=== PATIENT | male | born 1990 | race Asian ===

== ENCOUNTER 2017-04-06 06:19 | Day surgery (SDC) | payer OTHER ==
[2017-04-06] MEDS ORDERED: LIDOCAINE 1% 300 MG/30 ML SDV ONE (06:53)
[2017-04-06] MEDS ORDERED: ALBUTEROL 3 ML DEYVIAL ONE (06:53)
[2017-04-06] MEDS ORDERED: LIDOCAINE HCL 4% TOPICAL SOLN 50ML ONE (06:54)
[2017-04-06] MEDS ORDERED: LIDOCAINE 2% JELLY 5 ML TUBE ONE (06:54)
[2017-04-06] MEDS ORDERED: MIDAZOLAM 2 MG/2 ML VIAL ONE (07:16)
[2017-04-06] MEDS ORDERED: fentaNYL 100 MCG/2 ML INJ ONE (07:16)
--- NOTE | 2017-04-11 12:28 | GPN ---
[f rep st] PROCEDURE NOTE Corrected report DATE OF PROCEDURE: 04/06/2017 PROCEDURE: Bronchoscopy with endobronchial biopsies. Informed consent was obtained from the patient prior to the administration of anesthesia. The risks and benefits of both conscious sedation and the procedure itself were explained in detail and he agreed to proceed. Conscious sedation was achieved using total of 3 mg of IV Versed and 100 mcg of IV fentanyl. The patient tolerated these well without complications. DESCRIPTION OF PROCEDURE: A boat cleaning supervisor-out was performed prior to the administration of anesthesia. Subsequently, topical lidocaine was applied to the oropharynx prior to the insertion of the bronchoscope through the mouth. The uvula appeared to be normal, as well as the vocal cords and trachea. The main opal was sharp. There were mild secretions seen in the left mainstem. In the left mainstem at the orifice of the left lower division was an irregularly-shaped, somewhat sessile and polypoid mass that was obstructing the lower lobe bronchi. The biopsy forceps were able to pass around the mass, but the bronchoscope was not. Multiple forceps biopsies were taken from this mass without significant bleeding and without obvious complication. Subsequently, bronchial washings were also taken from this region. Next, attention was drawn toward the main opal, where a 3.7 cm subcarinal lymph node had been noted on CT scan. Although ultrasound guidance was not employed due to lack of equipment , multiple fine-needle aspirates were taken from this region without difficulty. A postprocedure fluoroscopy did not reveal pneumothorax and the patient tolerated the procedure well. There were no obvious complications. /[id number]/MODL Ricky acc#, 04/14/17, donna QUIROZ
== END 2017-04-06 10:05 | disposition home or self-care (01) ==
LOC: FSGY 06:19
PROVIDERS: ATTEND Internal Medicine Critical Care Medicine
PROC: 0B9B8ZX Drainage of Left Lower Lobe Bronchus, Via Natural or Artificial Opening Endoscopic, Diagnostic (ICD-10-PCS; principal; 2017-04-06 07:30)
PROC: 0BBB8ZX Excision of Left Lower Lobe Bronchus, Via Natural or Artificial Opening Endoscopic, Diagnostic (ICD-10-PCS; principal; 2017-04-06 07:30)
DX: C34.02 Malignant neoplasm of left main bronchus (principal)
CPT/HCPCS: J0171; J2250; J3010

== ENCOUNTER 2017-04-08 06:48 | Observation (INO) | payer OTHER ==
--- NOTE | 2017-04-08 07:11 | EDPHY ---
H & P Time Seen by Provider: 04/08/17 07:06 HPI/ROS: Chief complaint. Flank pain HPI. 26-year-old male presents emergency department with left flank pain and shortness of breath. Patient has had abdominal cramping for about 1 week. He was seen in our emergency department on April 04 where it was discovered that he had a mass in his left chest. He had a bronchoscopy 2 days ago and specimens were taken but path results are pending. He now has left flank pain for 3 hours worse with breathing and movement. Slight shortness of breath. No fever or cough. No vomiting or diarrhea though he says he somewhat gassy. No urinary symptoms. Currently taking antibiotics for possible left lower lobe pneumonia. ROS Constitutional. no fever/chills, no weakness Eyes. no problems with vision ENT. no sore throat, no nasal drainage Cardiovascular. no chest pain Respiratory. Shortness of breath without cough Abdominal. Left flank pain without vomiting or diarrhea . no problems urinating MS. no calf pain/swelling, no neck/back pain, no joint pain Skin. no rash Lymph. no swollen glands Neuro. no headache, no dizziness, no difficulty walking or with speech Past Medical/Surgical History: Healthy until a few days ago when he is found to have a mass in his left chest Social History: Single, nonsmoker, no alcohol Smoking Status: Never smoked Physical Exam: General Appearance: Alert well-developed male moderate distress vital signs are stable Eyes: Pupils equal and round no pallor or injection. ENT, Mouth: Mucous membranes are moist. Respiratory: There are no retractions, lungs are clear to auscultation. Cardiovascular: Regular rate and rhythm. Gastrointestinal: Abdomen is soft and nontender, no masses, bowel sounds normal. Tenderness to palpation left flank and posterior back area Neurological: Awake and alert, sensory and motor exams grossly normal. Skin: Warm and dry, no rashes. Musculoskeletal: Neck is supple nontender. Extremities symmetrical, full range of motion. Psychiatric: Patient is oriented X 3, there is no agitation. Constitutional: Initial Vital Signs Temperature (C) 36.9 C 04/08/17 06:51 Heart Rate 89 04/08/17 06:51 Respiratory Rate 18 04/08/17 06:51 Blood Pressure 127/60 H 04/08/17 06:51 O2 Sat (%) 96 04/08/17 06:51 O2 Delivery Mode Room Air Allergies/Adverse Reactions: ANTIBIOTIC Allergy (Uncoded 04/04/17 19:05) CONTRAST DYE Allergy (Uncoded 04/08/17 06:54) Home Medications: Medication Instructions Recorded AZITHROMYCIN [Z-PACK] 250 mg PO DAILY #6 tab 04/04/17 Albuterol [Proventil Inhaler HFA 1 - 2 puffs IH Q4H #1 mdi 04/04/17 (*)] Hydrocodone/APAP 5/325 [[place] 1 - 2 tab PO Q4H PRN #10 tab 04/04/17 5/325] Ibuprofen [Motrin (*)] 800 mg PO Q6-8PRN #14 tab 04/04/17 Herbals/Supplements -Info Only 1 ea PO DAILY 04/08/17 Medical Decision Making - Diagnostics Imaging Results: Imaging Impressions Chest X-Ray 04/08/17 07:46 Impression: 1. No post bronchoscopy pneumothorax. 2. Increased left lower lobe consolidation. Chest x-ray interpreted by me shows no pneumothorax. I think that the apparent pneumonia in the left lower lobe is worse than chest x-ray on April 04 Procedures: IV normal saline with 1 L saline given. Morphine for pain. Zofran for nausea prevention Sepsis evaluation ED Course/Re-evaluation: Recheck 8:55 am--stable. Better after pain medication no continuing to have discomfort. Patient, mom, and I discussed imaging study results. I consulted and discussed case with Dr. Perez, hospitalist who agrees to the admission I consulted and discussed the case with Dr. Amin, pulmonology, who will see The patient in the emergency department Patient and his mother and I discussed imaging study results, treatment plan, criteria for return importance of follow-up and further evaluation. We recommended admission. They expressed understanding and agreed Differential Diagnosis: Patient has been undergoing workup for pneumonia versus mass with recent bronchoscopy. His infiltrate in the left lower lung is worse. He has poorly controlled pain. It is unclear to me whether this is mass or consolidation of pneumonia. Plan is admission and continuing antibiotics as well as Pulmonary consult - Data Points Laboratory Results: Laboratory Results 04/08/17 08:33 04/08/17 08:33 04/08/17 04/08/17 04/08/17 09:08 08:33 08:33 WBC RBC Hgb Hct MCV MCH MCHC RDW Plt Count MPV Neut % (Auto) Lymph % (Auto) Cross % (Auto) Eos % (Auto) Baso % (Auto) Nucleat RBC Rel Count Absolute Neuts (auto) Absolute Lymphs (auto) Absolute Monos (auto) Absolute Eos (auto) Absolute Basos (auto) Absolute Nucleated RBC Immature Gran % Immature Gran # PT 14.0 SEC SEC (12.0-15.0) INR 1.09 (0.83-1.16) APTT 29.2 SEC SEC (23.0-38.0) VBG Lactic Acid 1.3 mmol/L mmol/L (0.7-2.1) Sodium Potassium Chloride Carbon Dioxide Anion Gap BUN Creatinine Estimated GFR Glucose Calcium Total Bilirubin 0.6 mg/dL mg/dL (0.1-1.4) Lipase Urine Color Urine Appearance Urine pH Ur Specific [place] Urine Protein Urine Ketones Urine Blood Urine Nitrate Urine Bilirubin Urine Urobilinogen Ur Leukocyte Esterase Urine Glucose 04/08/17 04/08/17 04/08/17 08:33 08:33 08:00 WBC 8.62 10^3/uL 10^3/uL (3.80-9.50) RBC 5.07 10^6/uL 10^6/uL (4.40-6.38) Hgb 15.4 g/dL g/dL (13.7-17.5) Hct 46.1 % % (40.0-51.0) MCV 90.9 fL fL (81.5-99.8) MCH 30.4 pg pg (27.9-34.1) MCHC 33.4 g/dL g/dL (32.4-36.7) RDW 11.8 % % (11.5-15.2) Plt Count 265 10^3/uL 10^3/uL (150-400) MPV 9.2 fL fL (8.7-11.7) Neut % (Auto) 67.9 % % (39.3-74.2) Lymph % (Auto) 20.3 % % (15.0-45.0) Cross % (Auto) 8.8 % % (4.5-13.0) Eos % (Auto) 2.3 % % (0.6-7.6) Baso % (Auto) 0.2 % L % (0.3-1.7) Nucleat RBC Rel Count 0.0 % % (0.0-0.2) Absolute Neuts (auto) 5.85 10^3/uL 10^3/uL (1.70-6.50) Absolute Lymphs (auto) 1.75 10^3/uL 10^3/uL (1.00-3.00) Absolute Monos (auto) 0.76 10^3/uL 10^3/uL (0.30-0.80) Absolute Eos (auto) 0.20 10^3/uL 10^3/uL (0.03-0.40) Absolute Basos (auto) 0.02 10^3/uL 10^3/uL (0.02-0.10) Absolute Nucleated RBC 0.00 10^3/uL 10^3/uL (0-0.01) Immature Gran % 0.5 % % (0.0-1.1) Immature Gran # 0.04 10^3/uL 10^3/uL (0.00-0.10) PT INR APTT VBG Lactic Acid Sodium 145 mEq/L H mEq/L (134-144) Potassium 4.9 mEq/L mEq/L (3.5-5.2) Chloride 106 mEq/L mEq/L (97-110) Carbon Dioxide 27 mEq/l mEq/l (22-31) Anion Gap 12 mEq/L mEq/L (8-16) BUN 14 mg/dL mg/dL (7-23) Creatinine 0.9 mg/dL mg/dL (0.7-1.3) Estimated GFR > 60 Glucose 85 mg/dL mg/dL (70-100) Calcium 9.4 mg/dL mg/dL (8.5-10.4) Total Bilirubin Lipase 35.0 IU/L IU/L (23-300) Urine Color YELLOW Urine Appearance CLEAR Urine pH 5.0 (5.0-7.5) Ur Specific [place] 1.029 (1.002-1.030) Urine Protein NEGATIVE (NEGATIVE) Urine Ketones NEGATIVE (NEGATIVE) Urine Blood NEGATIVE (NEGATIVE) Urine Nitrate NEGATIVE (NEGATIVE) Urine Bilirubin NEGATIVE (NEGATIVE) Urine Urobilinogen NEGATIVE EU EU (0.2-1.0) Ur Leukocyte Esterase NEGATIVE (NEGATIVE) Urine Glucose NEGATIVE (NEGATIVE) Medications Given: Discontinued Medications Azithromycin (Zithromax) 250 mg PO EDNOW ONE PRN Reason: Protocol Stop: 04/08/17 09:34 Last Admin: 04/08/17 09:57 Dose: 250 mg Hydromorphone HCl (Dilaudid) 0.5 mg IVP EDNOW ONE Stop: 04/08/17 09:25 Last Admin: 04/08/17 09:34 Dose: 0.5 mg Sodium Chloride (Ns) 1,000 mls @ 0 mls/hr IV ONCE ONE PRN Reason: Wide Open Stop: 04/08/17 07:46 Last Admin: 04/08/17 08:39 Dose: 1,000 mls Morphine Sulfate (Morphine) 6 mg IVP EDNOW ONE Stop: 04/08/17 07:46 Last Admin: 04/08/17 08:38 Dose: 6 mg Ondansetron HCl (Zofran) 4 mg IVP EDNOW ONE Stop: 04/08/17 07:46 Last Admin: 04/08/17 08:38 Dose: 4 mg Departure - Departure Disposition: [facility] Clinical Impression: Pneumonia Qualifiers: Pneumonia type: due to unspecified organism Chest pain Qualifiers: Chest pain type: chest pain on breathing Qualified Code(s): R07.1 - Chest pain on breathing Condition: Fair
[2017-04-08] MEDS ORDERED: NS 1,000 ML IV ONE (07:45)
[2017-04-08] MEDS ORDERED: ONDANSETRON 4 MG/2 ML VIAL IVP ONE (07:45)
[2017-04-08 08:10] LABS: COLOR YELLOW; LEUKOCYTE ESTERASE,URINE NEGATIVE (NEGATIVE); NITRITE,URINE NEGATIVE (NEGATIVE)
[2017-04-08 08:59] LABS: % IMMATURE GRANULYOCYTES 0.5 % (0.0-1.1); ABSOLUTE IMMATURE GRANULOCYTES 0.04 10^3/uL (0.00-0.10); ADD DIFF? NO; ADD MORPH? NO; ADD SCAN? NO; ATYPICAL LYMPHOCYTE FLAG 20 (0-99); FRAGMENT RBC FLAG 0 (0-99); HEMATOCRIT 46.1 % (40.0-51.0); HEMOGLOBIN 15.4 g/dL (13.7-17.5); LEFT SHIFT FLG 20 (0-99); LIPEMIA HEMOLYSIS FLAG 80 (0-99); MEAN CELL HEMOGLOBIN 30.4 pg (27.9-34.1); MEAN CELL HEMOGLOBIN CONCENTR. 33.4 g/dL (32.4-36.7); MEAN CELL VOLUME 90.9 fL (81.5-99.8); MEAN PLATELET VOLUME 9.2 fL (8.7-11.7); PLATELET CLUMPS FLAG 0 (0-99); PLATELET COUNT 265 10^3/uL (150-400); RED BLOOD CELL COUNT 5.07 10^6/uL (4.40-6.38); RED CELL DISTRIBUTION WIDTH 11.8 % (11.5-15.2)
[2017-04-08 09:07] LABS: ANION GAP 12 mEq/L (8-16); CALCIUM 9.4 mg/dL (8.5-10.4); CARBON DIOXIDE 27 mEq/l (22-31); CHLORIDE 106 mEq/L (97-110); CREATININE 0.9 mg/dL (0.7-1.3); GLOMERULAR FILTRATION RATE > 60; GLUCOSE 85 mg/dL (70-100); POTASSIUM 4.9 mEq/L (3.5-5.2); SODIUM 145 mEq/L (134-144)
[2017-04-08 09:09] LABS: BILIRUBIN,TOTAL 0.6 mg/dL (0.1-1.4)
[2017-04-08] MEDS ORDERED: HYDROmorphONE/DILAUDID 1 MG/ML SYR IVP ONE (09:24)
[2017-04-08 09:31] LABS: INR 1.09 (0.83-1.16)
[2017-04-08 09:32] LABS: APTT 29.2 SEC (23.0-38.0)
[2017-04-08] MEDS ORDERED: AZITHROMYCIN 250 MG TAB PO ONE (09:33)
[2017-04-08] MEDS ORDERED: ONDANSETRON DISINTEGRATING 4 MG TAB PO PRN (11:20)
[2017-04-08] MEDS ORDERED: ACETAMINOPHEN 325 MG TAB PO PRN (11:20)
[2017-04-08] MEDS ORDERED: ONDANSETRON 4 MG/2 ML VIAL IVP PRN (11:20)
[2017-04-08] MEDS: IBUPROFEN 800 MG TAB PO PRN ×2 (11:58→18:19)
[2017-04-08] MEDS: HYDROmorphONE/DILAUDID 2 MG TAB PO PRN ×3 (11:59→20:13)
[2017-04-08] MEDS: D5W 1/2 NS 1,000 ML IV SCH ×2 (12:00→20:12)
[2017-04-08] MEDS: ALBUTEROL 60 PUFFS/8 GM MDI IH SCH ×3 (12:42→19:30)
--- NOTE | 2017-04-08 14:00 | GCON ---
[f rep st] CONSULTATION REASON FOR ADMISSION: Pleuritic chest pain. HISTORY OF PRESENT ILLNESS: The patient is an extremely pleasant 26-year-old white male with past m edical history including depression and a lung mass. Three days ago he underwent fiberoptic broncho scopy by Dr. Gene Alvarado. He presents to the emergency room with complaints of chest pain. On discus sharmaine with the patient he states these symptoms began yesterday. He denies any cough however or any production of sputum. There is no hemoptysis. He has had no fever though he is somewhat low-gradis h currently. No nausea, vomiting, or diarrhea. He is slightly more breathless but he feels this is secondary to difficulty taking a deep inspiration. Currently he is lying on his right side as lyin g on the left side is markedly painful. PAST MEDICAL HISTORY: Significant for a lung mass and depression. ALLERGIES: Iodine. SOCIAL HISTORY: Previous smoker, quit in 1997. No significant alcohol use. Work history as a teen ager. He is single without children. His mother is at bedside, and he has excellent family support . MEDICATIONS: Only include guaifenesin and Ventolin. PHYSICAL EXAM: VITAL SIGNS: Blood pressure is 90/58, pulse 87, respirations 14, temperature is 37. 2, oxygen saturation is 96% on room air. GENERAL: He is a well-developed, well-nourished 26-year-o ld, white male who is resting comfortably. He is in moderate pain. HEENT: Eyes are [place]UMBLE, EOMI. Throat shows no erythema or tonsillar hypertrophy. NECK: Supple. No cervical adenopathy. HEART: Regular rate and rhythm without murmurs, rubs, or gallops. LUNGS: Diminished breath sounds. Incr eased crackles in the left base. There are no E/A changes. ABDOMEN: Soft, nontender. Bowel sound s are present in all 4 quadrants. EXTREMITIES: There is no clubbing, cyanosis, or edema. LABORATORIES: White count is 8.6, hemoglobin 15, hematocrit 46, platelet count is 265. INR is 1.09 . Sodium 145, potassium 4.9, chloride 106, CO2 is 27, BUN 14, creatinine 0.9, glucose is 85, urinal ysis is negative. CT scan of the chest shows worsening consolidation in left lower lobe. There are no air bronchograms present. IMPRESSION: 1. Left lower lobe lung mass, pathology which is currently pending. 2. Worsening consolidation, left lower lobe, likely postobstructive pneumonia/pneumonitis. His whi te count is normal and he has no fever. 3. Pleuritic chest pain. 4. History of depression. 5. Recent fiberoptic bronchoscopy. RECOMMENDATIONS: 1. Adequate pain control. 2. Start patient on antibiotics. 3. DVT and PE prophylaxis. 4. Stress ulcer prophylaxis. 5. Early ambulation. 6. Consider repeat of CT scan using contrast. /[id number]/MODL
--- NOTE | 2017-04-08 14:41 | PDGENHP ---
History and Physical - Chief Complaint acute Flank pain - History of Present Illness PCP: Dr. Rodriguez Primary supervisor sewer system: Dr. Alvarado HPI: 26-year-old male presenting with acute flank pain located in the left flank and left upper abdomen, characterized as severe, associated with shortness of breath, back pain, night sweats, onset of the pain was approximately 4:00 a.m. on the day of presentation, duration persistent thereafter. Pain was not alleviated by home Vicodin, seemed to be alleviated after he received Dilaudid in the emergency department. He reports that it was exacerbated by any movement. He reports approximately 1 week of night sweats prior to seeking medical attention 4 days ago the context of abdominal cramps. The patient underwent abdominal imaging which demonstrated no intra-abdominal findings but he did have evidence of a left lung mass for which he underwent bronchoscopy on 04/05. He had been initiated on azithromycin on 04/04 and he has been adherent to this medication. History Information - Allergies/Home Medication List Allergies/Adverse Reactions: ANTIBIOTIC Allergy (Uncoded 04/04/17 19:05) CONTRAST DYE Allergy (Uncoded 04/08/17 06:54) Home Medications: Herbals/Supplements -Info Only 1 ea PO DAILY 04/08/17 [Last Taken Unknown] I have personally reviewed and updated: family history, medical history, social history, surgical history - Past Medical History Additional medical history: Exercise-induced asthma - Surgical History Reports: no pertinent surgical hx - Family History Additional family history: adopted, healthy siblings - Social History Smoking Status: Never smoked Alcohol Use: None Drug Use: Marijuana Additional social history: independent in his ADLs comma originally from [facility] Review of Systems ROS: 10pt was reviewed & negative except for what was stated in HPI & below Cardiac: Reports: chest pain Respiratory: Reports: shortness of breath Physical Exam Temp Pulse Resp BP Pulse Ox 37.2 C 86 16 90/58 L 94 04/08/17 11:29 04/08/17 12:48 04/08/17 12:48 04/08/17 11:29 04/08/17 12:48 Constitutional: no apparent distress, not in pain, uncomfortable, other ( sweaty appearing) Eyes: PERRL, anicteric sclera, EOMI Ears, Nose, Mouth, Throat: moist mucous membranes, hearing normal, ears appear normal, no oral mucosal ulcers Cardiovascular: regular rate and rhythym, no murmur, rub, or gallop, No edema Respiratory: reduced air movement ( shortened inspiratory phase bilaterally secondary to pain), rhonchi ( left base on inspiration), No expiratory wheeze, No bronchial breath sounds Gastrointestinal: normoactive bowel sounds, soft, non-tender abdomen, no palpable masses, guarding ( voluntary), No distension Skin: other ( no vesicular lesions over the abdomen or chest), No abrasion, No erythema Musculoskeletal: other ( full range of motion left shoulder without any pain elicited) Neurologic: AAOx3, sensation intact bilaterally, No facial droop Psychiatric: interacting appropriately, not anxious, not encephalopathic, thought process linear Lymph, Heme, Immunologic: other ( no left axillary lymphadenopathy, nontender, will less than 1 cm bilateral submandibular lymph nodes without any anterior posterior cervical lymphadenopathy) Lab Data & Imaging Review 04/08/17 08:33 04/08/17 08:33 WBC 8.62 10^3/uL (3.80-9.50) 04/08/17 08:33 RBC 5.07 10^6/uL (4.40-6.38) 04/08/17 08:33 Hgb 15.4 g/dL (13.7-17.5) 04/08/17 08:33 Hct 46.1 % (40.0-51.0) 04/08/17 08:33 MCV 90.9 fL (81.5-99.8) 04/08/17 08:33 MCH 30.4 pg (27.9-34.1) 04/08/17 08:33 MCHC 33.4 g/dL (32.4-36.7) 04/08/17 08:33 RDW 11.8 % (11.5-15.2) 04/08/17 08:33 Plt Count 265 10^3/uL (150-400) 04/08/17 08:33 MPV 9.2 fL (8.7-11.7) 04/08/17 08:33 Neut % (Auto) 67.9 % (39.3-74.2) 04/08/17 08:33 Lymph % (Auto) 20.3 % (15.0-45.0) 04/08/17 08:33 [place] % (Auto) 8.8 % (4.5-13.0) 04/08/17 08:33 Eos % (Auto) 2.3 % (0.6-7.6) 04/08/17 08:33 Baso % (Auto) 0.2 % (0.3-1.7) L 04/08/17 08:33 Nucleat RBC Rel Count 0.0 % (0.0-0.2) 04/08/17 08:33 Absolute Neuts (auto) 5.85 10^3/uL (1.70-6.50) 04/08/17 08:33 Absolute Lymphs (auto) 1.75 10^3/uL (1.00-3.00) 04/08/17 08:33 Absolute Monos (auto) 0.76 10^3/uL (0.30-0.80) 04/08/17 08:33 Absolute Eos (auto) 0.20 10^3/uL (0.03-0.40) 04/08/17 08:33 Absolute Basos (auto) 0.02 10^3/uL (0.02-0.10) 04/08/17 08:33 Absolute Nucleated RBC 0.00 10^3/uL (0-0.01) 04/08/17 08:33 Immature Gran % 0.5 % (0.0-1.1) 04/08/17 08:33 Immature Gran # 0.04 10^3/uL (0.00-0.10) 04/08/17 08:33 PT 14.0 SEC (12.0-15.0) 04/08/17 08:33 INR 1.09 (0.83-1.16) 04/08/17 08:33 APTT 29.2 SEC (23.0-38.0) 04/08/17 08:33 VBG Lactic Acid 1.3 mmol/L (0.7-2.1) 04/08/17 09:08 Sodium 145 mEq/L (134-144) H 04/08/17 08:33 Potassium 4.9 mEq/L (3.5-5.2) 04/08/17 08:33 Chloride 106 mEq/L (97-110) 04/08/17 08:33 Carbon Dioxide 27 mEq/l (22-31) 04/08/17 08:33 Anion Gap 12 mEq/L (8-16) 04/08/17 08:33 BUN 14 mg/dL (7-23) 04/08/17 08:33 Creatinine 0.9 mg/dL (0.7-1.3) 04/08/17 08:33 Estimated GFR > 60 04/08/17 08:33 Glucose 85 mg/dL (70-100) 04/08/17 08:33 Calcium 9.4 mg/dL (8.5-10.4) 04/08/17 08:33 Total Bilirubin 0.6 mg/dL (0.1-1.4) 04/08/17 08:33 Lipase 35.0 IU/L (23-300) 04/08/17 08:33 Urine Color YELLOW 04/08/17 08:00 Urine Appearance CLEAR 04/08/17 08:00 Urine pH 5.0 (5.0-7.5) 04/08/17 08:00 Ur Specific [place] 1.029 (1.002-1.030) 04/08/17 08:00 Urine Protein NEGATIVE (NEGATIVE) 04/08/17 08:00 Urine Ketones NEGATIVE (NEGATIVE) 04/08/17 08:00 Urine Blood NEGATIVE (NEGATIVE) 04/08/17 08:00 Urine Nitrate NEGATIVE (NEGATIVE) 04/08/17 08:00 Urine Bilirubin NEGATIVE (NEGATIVE) 04/08/17 08:00 Urine Urobilinogen NEGATIVE EU (0.2-1.0) 04/08/17 08:00 Ur Leukocyte Esterase NEGATIVE (NEGATIVE) 04/08/17 08:00 Urine Glucose NEGATIVE (NEGATIVE) 04/08/17 08:00 Visualized and Interpreted Chest x-ray results: Yes Chest X-Ray results: other ( left lower lobe consolidation) Assessment & Plan Assessment: 26-year-old male presenting with acute postobstructive pneumonia in the setting of newly diagnosed lung mass Plan: 1. Postobstructive pneumonia. Acute, new problem this provider, further workup indicated. Evidenced by increase in left lower lobe consolidation in the setting of newly diagnosed left lower lobe mass - discussed with Dr. Amin, per his discussion with Dr. Alvarado, the patient did not appear data have a particularly infected appearing bronchoscopy and it is likely that the patient has developed a postobstructive pneumonia since 04/05, resulting in his acute flank pain symptoms - given that the patient has been on azithromycin and this condition has evolved despite this, would recommend treating him postobstructive process with Zosyn, consider transitioning to Augmentin once pain seems to be better controlled -send blood cultures, repeat CBC - aggressive pain control with oral and IV Dilaudid, oral and IV nonsteroidal anti-inflammatories, Tylenol, bowel regiment, heat pad 2. Lung mass. Newly diagnosed, pathology is currently pending and will likely be available on 04/10 versus 04/11 -reviewed outside records including 04/04 CT imaging demonstrating a 10 cm x 9 cm left lower lobe mass and emergency department report describes the patient being given Vicodin for symptom control as well as azithromycin -Dr. Amin reports to me that the patient will be contacted by their office once the results are available for further guidance -if the patient remains hospitalized, will consult with Oncology once the path results are available Diet. Regular Prophylaxis. Moderate risk, SCDs, hold pharmacologic patient requires procedure Code. Full Disposition. Anticipated discharge is 04/09 code mood stabilization of pain and infection as outlined above.
[2017-04-08] MEDS: PIPERACILLIN/TAZO 4.5 GM/DEX 100 ML IV SCH ×2 (14:44→20:14)
[2017-04-08] MEDS ORDERED: BISACODYL 10 MG SUPP PR PRN (14:46)
[2017-04-08] MEDS ORDERED: LACTULOSE 20 GM/30 ML UDCUP PO PRN (14:46)
[2017-04-08] MEDS ORDERED: MAGNESIUM HYDROXIDE 30 ML UDCUP PO PRN (14:46)
[2017-04-08] MEDS ORDERED: POLYETHYLENE GLYCOL 3350 17 GM PKT PO PRN (14:46)
[2017-04-08] MEDS: HYDROmorphONE/DILAUDID 1 MG/ML SYR IVP PRN (18:54)
[2017-04-08] MEDS: KETOROLAC 15 MG/1 ML SDV IVP PRN (20:13)
[2017-04-08] MEDS: SENNOSIDES/DOCUSATE SODIUM TAB PO SCH (20:17)
[2017-04-09] MEDS: HYDROmorphONE/DILAUDID 2 MG TAB PO PRN ×3 (00:06→09:06)
[2017-04-09] MEDS: PIPERACILLIN/TAZO 4.5 GM/DEX 100 ML IV SCH ×2 (01:53→09:03)
[2017-04-09] MEDS: ALBUTEROL 60 PUFFS/8 GM MDI IH SCH ×3 (02:50→08:21)
[2017-04-09 03:52] VITALS: TEMP 98.4
[2017-04-09] MEDS: KETOROLAC 15 MG/1 ML SDV IVP PRN (04:04)
[2017-04-09] MEDS: HYDROmorphONE/DILAUDID 1 MG/ML SYR IVP PRN (05:13)
[2017-04-09 05:21] LABS: % IMMATURE GRANULYOCYTES 0.4 % (0.0-1.1); ABSOLUTE IMMATURE GRANULOCYTES 0.03 10^3/uL (0.00-0.10); ADD DIFF? NO; ADD MORPH? NO; ADD SCAN? NO; ATYPICAL LYMPHOCYTE FLAG 50 (0-99); FRAGMENT RBC FLAG 0 (0-99); HEMATOCRIT 40.1 % (40.0-51.0); HEMOGLOBIN 13.4 g/dL (13.7-17.5); LEFT SHIFT FLG 10 (0-99); LIPEMIA HEMOLYSIS FLAG 80 (0-99); MEAN CELL HEMOGLOBIN 30.4 pg (27.9-34.1); MEAN CELL HEMOGLOBIN CONCENTR. 33.4 g/dL (32.4-36.7); MEAN CELL VOLUME 90.9 fL (81.5-99.8); MEAN PLATELET VOLUME 8.7 fL (8.7-11.7); PLATELET CLUMPS FLAG 20 (0-99); PLATELET COUNT 249 10^3/uL (150-400); RED BLOOD CELL COUNT 4.41 10^6/uL (4.40-6.38); RED CELL DISTRIBUTION WIDTH 11.7 % (11.5-15.2)
[2017-04-09 05:41] LABS: ALANINE AMINOTRANSFERASE 66 IU/L (21-72); ALBUMIN 2.9 g/dL (3.5-5.0); ALKALINE PHOSPHATASE 61 IU/L (38-126); ANION GAP 8 mEq/L (8-16); ASPARTATE AMINOTRANSFERASE 40 IU/L (17-59); BILIRUBIN,TOTAL 0.8 mg/dL (0.1-1.4); CALCIUM 8.4 mg/dL (8.5-10.4); CARBON DIOXIDE 25 mEq/l (22-31); CHLORIDE 104 mEq/L (97-110); GLOMERULAR FILTRATION RATE > 60; GLUCOSE 92 mg/dL (70-100); POTASSIUM 4.7 mEq/L (3.5-5.2); SODIUM 137 mEq/L (134-144)
[2017-04-09 08:26] VITALS: O2SAT 97
[2017-04-09] MEDS ORDERED: Herbals/Supplements -Info Only PO SCH (09:00)
[2017-04-09] MEDS ORDERED: AZITHROMYCIN 250 MG TAB PO SCH (09:00)
[2017-04-09] MEDS: D5W 1/2 NS 1,000 ML IV SCH (09:03)
[2017-04-09] MEDS: IBUPROFEN 800 MG TAB PO PRN (09:06)
[2017-04-09] MEDS: SENNOSIDES/DOCUSATE SODIUM TAB PO SCH (09:07)
[2017-04-09] MEDS ORDERED: AMOXICILLIN/CLAVULANATE POT 875/125 MG TAB PO ONE (09:24)
--- NOTE | 2017-04-09 09:33 | PDDCSUM ---
Discharge Summary Discharge Summary: DISCHARGE SUMMARY FOLLOW-UP ITEMS: Lung biopsy results DATE OF ADMISSION: 04/08/2017 DATE OF DISCHARGE: 04/09/2017 DISCHARGE DIAGNOSES: 1. Suspected postobstructive pneumonia 2. Newly diagnosed lung mass 3. Acute chest pain CONSULTATIONS: Pulmonary by Dr. Amin PROCEDURES / IMAGING: CT of the chest demonstrating increasing consolidation beyond the lung mass CHIEF COMPLAINT: Acute chest pain SUBJECTIVE: Patient reports his pain is well controlled at time discharge PHYSICAL EXAM ON DISCHARGE: Systolic blood pressure 100, heart rate 70, afebrile overnight, satting well on room air, reduced air movement in the left lung base, inspiratory crackles superior to that area, good inspiratory and expiratory air movement in the left posterior apex LABS ON DISCHARGE: White blood cell count 7300, hemoglobin 13.4, creatinine 1, serum sodium 137, liver panel unremarkable HOSPITAL COURSE BY PROBLEM: 1. Suspected postobstructive pneumonia. This is most likely cause of patient's acute chest pain. Dr. Amin and I discussed the case and we provided the patient with Zosyn, transition to oral Augmentin at time of discharge. I discontinued the azithromycin the patient was previously receiving. Patient is currently breathing well on room air, has no leukocytosis, has no overt fever, is safe for discharge home. He will complete 7 total days of antibiotics for this process. 2. Newly diagnosed lung mass. Left lower lobe, biopsied via bronchoscopy by Dr. Alvarado, results should be available either tomorrow or the next day. Patient will be contacted by Dr. Alvarado and will follow up as recommended. It should be noted that the patient does not have any evidence of hepatosplenomegaly or other intra-abdominal pathologies. 3. Acute chest pain. Most likely secondary to postobstructive pneumonia although pulmonary hemorrhage following bronchoscopy biopsies certainly possible. The patient's pain has responded to combination of ibuprofen and Dilaudid the patient will continue taking these medications moving forward. He will also remain on a stool softener/laxative while he is receiving Dilaudid. DISCHARGE MEDICATIONS: Please see official discharge medication reconciliation sheet in chart , Dilaudid to 4 mg as needed, 40 tablets prescribed, Augmentin 875 twice daily for a subsequent 5 days. DISCHARGE INSTRUCTIONS: Please be in contact Dr. Alvarado office for biopsy results.
[2017-04-09 09:42] VITALS: BP 121/70; PULSE 83; RESP 16
--- NOTE | 2017-04-09 11:15 | SOAPPROG ---
SOAP Progress Note Assessment/Plan: Assessment: * Left lower lobe lung mass-status post bronchoscopy. Pathology report is currently pending * Left lower lobe postobstructive pneumonia-currently on antibiotics. Patient is not breathless or hypoxemic. * Pleurisy-pain is well controlled at this time. Plan: Okay for discharge home from a pulmonary standpoint. Recommend he follow up with Dr. Gene Alvarado next week Subjective: Resting comfortably. Pain is resolved. He feels he is able take a deeper breath. Objective: Vital Signs Temp Pulse Resp BP Pulse Ox 36.9 C 83 16 121/70 H 97 04/09/17 09:42 04/09/17 09:42 04/09/17 09:42 04/09/17 09:42 04/09/17 09:42 Laboratory Results 04/09/17 04:49 04/09/17 04:49 04/08/17 04/09/17 04/10/17 05:59 05:59 05:59 Intake Total 2900 Output Total 700 Balance 2200 PT 14.0 SEC (12.0-15.0) 04/08/17 08:33 INR 1.09 (0.83-1.16) 04/08/17 08:33 Physical Exam - Physical Exam General Appearance: alert, no apparent distress EENT: PERRL/EOMI, normal ENT inspection Neck: non-tender, full range of motion, supple Respiratory: crackles (Left base) Cardiac/Chest: normal peripheral pulses, regular rate, rhythm Peripheral Pulses: 2+: carotid (R), carotid (L), femoral (R), femoral (L), dorsalis-pedis (R), dorsalis-pedis (L) Abdomen: normal bowel sounds, non-tender, soft Male Genitalia: deferred Rectal: deferred Skin: normal color, warm/dry Lymphatic: no adenopathy Extremities: normal range of motion, non-tender, normal inspection, normal capillary refill ICD10 Worksheet Patient Problems: Problems Problem Status Onset Chest pain Acute Pneumonia Acute
--- NOTE | 2017-04-11 12:28 | GPN ---
[f rep st] PROCEDURE NOTE DATE OF PROCEDURE: 04/06/2017 PROCEDURE: Bronchoscopy with endobronchial biopsies. Informed consent was obtained from the patient prior to the administration of anesthesia. The risks and benefits of both conscious sedation and the procedure itself were explained in detail and he ag terese to proceed. Conscious sedation was achieved using total of 3 mg of IV Versed and 100 mcg of IV fentanyl. The patient tolerated these well without complications. DESCRIPTION OF PROCEDURE: A radio time sales supervisor-out was performed prior to the administration of anesthesia. Subsequently, topical lidocaine was applied to the oropharynx prior to the insertion of the broncho scope through the mouth. The uvula appeared to be normal, as well as the vocal cords and trachea. The main opal was sharp. There were mild secretions seen in the left mainstem. In the left kralie tem at the orifice of the left lower division was an irregularly-shaped, somewhat sessile and polypo id mass that was obstructing the lower lobe bronchi. The biopsy forceps were able to pass around th e mass, but the bronchoscope was not. Multiple forceps biopsies were taken from this mass without s ignificant bleeding and without obvious complication. Subsequently, bronchial washings were also ta ming from this region. Next, attention was drawn toward the main opal, where a 3.7 cm subcarinal l ymph node had been noted on CT scan. Although ultrasound guidance was not employed due to lack of e quipment, multiple fine-needle aspirates were taken from this region without difficulty. A postproc edure fluoroscopy did not reveal pneumothorax and the patient tolerated the procedure well. There w ere no obvious complications. /[id number]/MODL
== END 2017-04-09 11:30 | disposition home or self-care (01) ==
LOC: INTOOBSV 09:32 → F1N 10:39
PROVIDERS: ADMIT Internal Medicine; ATTEND Internal Medicine
DX: J18.0 Bronchopneumonia, unspecified organism (principal); R91.8 Other nonspecific abnormal finding of lung field
CPT/HCPCS: 96374; G0378; J1170; J1885; J2405; J2543

== ENCOUNTER 2017-04-12 11:40 | Emergency (ER) | payer OTHER ==
[2017-04-12 11:50] VITALS: TEMP 97.7
[2017-04-12] MEDS ORDERED: NS 500 ML IV ONE (12:37)
[2017-04-12] MEDS ORDERED: ONDANSETRON 4 MG/2 ML VIAL IVP ONE ×2 (12:38→13:36)
--- NOTE | 2017-04-12 12:42 | EDPHY ---
H & P Time Seen by Provider: 04/12/17 11:53 HPI/ROS: CHIEF COMPLAINT: Shortness of breath, left-sided chest pain HISTORY OF PRESENT ILLNESS: Patient is a 26-year-old male who presents emergency department with shortness of breath and left-sided pleuritic chest pain. The patient was seen in the emergency department last week for flu-like symptoms and shortness of breath. At that time he was found to have fluid on his lungs. Last he had a pleurocentesis. On Monday he was diagnosed with squamous cell carcinoma. He has had ongoing shortness of breath. He feels as though it is slightly worse. He continues to have severe left-sided pleuritic chest pain. It is not positional. It is not worse with movement. He denies nausea or vomiting. He denies recent fever. No leg pain or swelling. REVIEW OF SYSTEMS: My complete review of systems is negative except as mentioned in the HPI. Past Medical/Surgical History: Includes asthma, recent diagnosis of lung squamous cell carcinoma Past surgical history: Negative Social history: The patient does not smoke Smoking Status: Never smoked Physical Exam: Vitals noted GENERAL: Well-appearing, in no acute distress, alert. HEENT: Eyes normal to inspection, normal pharynx, no signs of dehydration. NECK: No thyromegaly, no lymphadenopathy, supple. RESPIRATORY: Decreased breath sounds at left base, no rales, rhonchi or wheezing. No respiratory distress CVS: Regular rate and rhythm, no rubs, murmurs, or gallops. ABDOMEN: Soft, nontender, nondistended, no organomegaly. BACK: Normal to inspection, no CVA tenderness. SKIN: Normal color, no rash, warm, dry. No pallor. EXTREMITIES: No pedal edema, no calf tenderness, no Homans sign or cords, no joint swelling. NEURO/PSYCH: Alert and oriented x3, normal mood and affect, normal motor sensory exam. Constitutional: Initial Vital Signs Temperature (C) 36.5 C 04/12/17 11:48 Heart Rate 95 04/12/17 11:48 Respiratory Rate 18 04/12/17 11:48 Blood Pressure 143/61 H 04/12/17 11:48 O2 Sat (%) 96 04/12/17 11:48 O2 Delivery Mode Room Air Allergies/Adverse Reactions: ANTIBIOTIC Allergy (Uncoded 04/04/17 19:05) CONTRAST DYE Allergy (Uncoded 04/08/17 06:54) Home Medications: Medication Instructions Recorded Albuterol [Proventil Inhaler HFA 1 - 2 puffs IH Q4H #1 mdi 04/04/17 (*)] Ibuprofen [Motrin (*)] 800 mg PO Q6-8PRN #14 tab 04/04/17 Herbals/Supplements -Info Only 1 ea PO DAILY 04/08/17 Acetaminophen [Tylenol 325mg (*)] 650 mg PO Q4HRS PRN #0 tab 04/09/17 Amoxicillin/Clavulanate Pot 875 mg PO BID #11 tab 04/09/17 [Augmentin 875 MG TAB (*)] HYDROmorphone HCL [Dilaudid 2 mg 2 - 4 mg PO Q4HRS PRN #40 tab 04/09/17 (*)] Sennosides/Docusate Sodium 1 - 2 tab PO BID tab 04/09/17 [Senokot-S] Medical Decision Making - Diagnostics Imaging Results: Imaging Impressions Chest/Thorax CTA 04/12/17 12:38 Impression: 1. No evidence of thrombopulmonary embolic disease. The left infrahilar mass compresses and narrows the left lower lobe pulmonary artery, however, does not result in occlusion. 2. Near complete collapse/consolidation left lower lobe due to central/left infrahilar mass. 3. Lymphadenopathy throughout the right paratracheal, AP window, left hilar, and subcarinal wanda stations. 4. Solitary lytic lesion right seventh rib may represent metastatic disease. 5. New trace right pleural effusion and minimal right basilar atelectasis. Findings discussed with Emergency Department physician, Yuly Rodriguez on 04/12 at 1400 hours. ED Course/Re-evaluation: In the emergency department I discussed possible etiologies with the patient. I answered all his questions. An IV was placed. Laboratory studies were obtained. A CT angiogram of the chest was ordered. I discussed the case with Dr. Alvarado from pulmonology. I reviewed the patient's laboratory studies. White count was minimally elevated at 9.7. CT angiogram chest: Please refer the dictated report by Dr. Figueredo. The patient has a consolidated left lobe. There is no pulmonary embolus. I discussed the case and findings with Dr. Alvarado from pulmonology. He recommended outpatient management of the patient's CT findings. The patient currently has Dilaudid tablets which are controlling his pain. He will continue to take ibuprofen. I answered all the patient's questions. He is given warnings prior to leaving. Differential Diagnosis: My differential includes but is not limited to pleurisy, pleural effusion, obstructive lung disease, squamous cell carcinoma complication, pneumothorax - Data Points Laboratory Results: Laboratory Results 04/12/17 12:50 04/12/17 12:50 04/12/17 04/12/17 04/12/17 12:50 12:50 12:50 WBC 9.77 10^3/uL H 10^3/uL (3.80-9.50) RBC 4.89 10^6/uL 10^6/uL (4.40-6.38) Hgb 14.7 g/dL g/dL (13.7-17.5) Hct 44.4 % % (40.0-51.0) MCV 90.8 fL fL (81.5-99.8) MCH 30.1 pg pg (27.9-34.1) MCHC 33.1 g/dL g/dL (32.4-36.7) RDW 11.6 % % (11.5-15.2) Plt Count 373 10^3/uL 10^3/uL (150-400) MPV 8.4 fL L fL (8.7-11.7) Neut % (Auto) 67.8 % % (39.3-74.2) Lymph % (Auto) 18.1 % % (15.0-45.0) Lake % (Auto) 10.1 % % (4.5-13.0) Eos % (Auto) 3.2 % % (0.6-7.6) Baso % (Auto) 0.3 % % (0.3-1.7) Nucleat RBC Rel Count 0.0 % % (0.0-0.2) Absolute Neuts (auto) 6.62 10^3/uL H 10^3/uL (1.70-6.50) Absolute Lymphs (auto) 1.77 10^3/uL 10^3/uL (1.00-3.00) Absolute Monos (auto) 0.99 10^3/uL H 10^3/uL (0.30-0.80) Absolute Eos (auto) 0.31 10^3/uL 10^3/uL (0.03-0.40) Absolute Basos (auto) 0.03 10^3/uL 10^3/uL (0.02-0.10) Absolute Nucleated RBC 0.00 10^3/uL 10^3/uL (0-0.01) Immature Gran % 0.5 % % (0.0-1.1) Immature Gran # 0.05 10^3/uL 10^3/uL (0.00-0.10) PT 14.0 SEC SEC (12.0-15.0) INR 1.09 (0.83-1.16) APTT 29.0 SEC SEC (23.0-38.0) Sodium 140 mEq/L mEq/L (134-144) Potassium 5.0 mEq/L mEq/L (3.5-5.2) Chloride 103 mEq/L mEq/L (97-110) Carbon Dioxide 26 mEq/l mEq/l (22-31) Anion Gap 11 mEq/L mEq/L (8-16) BUN 17 mg/dL mg/dL (7-23) Creatinine 1.0 mg/dL mg/dL (0.7-1.3) Estimated GFR > 60 Glucose 83 mg/dL mg/dL (70-100) Calcium 9.3 mg/dL mg/dL (8.5-10.4) Medications Given: Discontinued Medications Diphenhydramine HCl (Benadryl Injection) 25 mg IVP EDNOW ONE Stop: 04/12/17 12:39 Last Admin: 04/12/17 12:54 Dose: 25 mg Sodium Chloride (Ns) 500 mls @ 1,000 mls/hr IV ONCE ONE PRN Reason: Protocol Stop: 04/12/17 13:06 Last Admin: 04/12/17 12:54 Dose: 500 mls Ondansetron HCl (Zofran) 4 mg IVP EDNOW ONE Stop: 04/12/17 12:39 Last Admin: 04/12/17 12:54 Dose: 4 mg Ondansetron HCl (Zofran) 4 mg IVP EDNOW ONE Stop: 04/12/17 13:37 Last Admin: 04/12/17 13:37 Dose: 4 mg Departure - Departure Disposition: Home, Routine, Self-Care Clinical Impression: Shortness of breath Chest pain Qualifiers: Chest pain type: unspecified Qualified Code(s): R07.9 - Chest pain, unspecified Instructions: Chest Pain (ED), Pleurisy (ED) Additional Instructions: Your CT scan showed consolidation of the left lower lobe. There is no pulmonary embolus. You need close follow-up with Dr. Alvarado from pulmonology. Referrals: Elpidio Rodriguez MD [Primary Care Provider] - 2-3 days, if not improved Miah Alvarado MD [Medical Doctor] - As per Instructions
[2017-04-12 12:59] LABS: % IMMATURE GRANULYOCYTES 0.5 % (0.0-1.1); ABSOLUTE IMMATURE GRANULOCYTES 0.05 10^3/uL (0.00-0.10); ADD DIFF? NO; ADD MORPH? NO; ADD SCAN? NO; ATYPICAL LYMPHOCYTE FLAG 10 (0-99); FRAGMENT RBC FLAG 0 (0-99); HEMATOCRIT 44.4 % (40.0-51.0); HEMOGLOBIN 14.7 g/dL (13.7-17.5); LEFT SHIFT FLG 0 (0-99); LIPEMIA HEMOLYSIS FLAG 80 (0-99); MEAN CELL HEMOGLOBIN 30.1 pg (27.9-34.1); MEAN CELL HEMOGLOBIN CONCENTR. 33.1 g/dL (32.4-36.7); MEAN CELL VOLUME 90.8 fL (81.5-99.8); MEAN PLATELET VOLUME 8.4 fL (8.7-11.7); PLATELET CLUMPS FLAG 0 (0-99); PLATELET COUNT 373 10^3/uL (150-400); RED BLOOD CELL COUNT 4.89 10^6/uL (4.40-6.38); RED CELL DISTRIBUTION WIDTH 11.6 % (11.5-15.2)
[2017-04-12] MEDS ORDERED: IOPAMIDOL (ISOVUE-300) 100 ML BTL ONE (13:14)
[2017-04-12 13:16] LABS: INR 1.09 (0.83-1.16)
[2017-04-12] MEDS ORDERED: IOPAMIDOL (ISOVUE 370) 100 ML BTL IV ONE (13:24)
[2017-04-12] MEDS ORDERED: ONDANSETRON 4 MG/2 ML VIAL ONE (13:32)
[2017-04-12 13:33] LABS: CALCIUM 9.3 mg/dL (8.5-10.4); CARBON DIOXIDE 26 mEq/l (22-31); CHLORIDE 103 mEq/L (97-110); GLOMERULAR FILTRATION RATE > 60; GLUCOSE 83 mg/dL (70-100); SODIUM 140 mEq/L (134-144)
[2017-04-12 13:54] LABS: ANION GAP 11 mEq/L (8-16)
[2017-04-12] MEDS ORDERED: KETOROLAC 30 MG/1 ML SDV IVP ONE (14:41)
[2017-04-12 15:27] VITALS: BP 121/64; PULSE 78; RESP 14; O2SAT 96
== END 2017-04-12 15:27 | disposition home or self-care (01) ==
DX: R06.02 Shortness of breath (principal); R07.9 Chest pain, unspecified; J45.909 Unspecified asthma, uncomplicated
CPT/HCPCS: 96374; J1200; J2405; Q9967

== ENCOUNTER → 2017-04-17 | Outpatient (CLI) | payer OTHER | LOC: FIMAGING 15:28 | PROVIDERS: ATTEND Nurse Practitioner | DX: R91.8 Other nonspecific abnormal finding of lung field (principal); C34.02 Malignant neoplasm of left main bronchus ==

== ENCOUNTER 2017-04-18 10:46 | Inpatient (IN) | payer OTHER ==
[2017-04-18] MEDS ORDERED: oxyCODONE IR 5 MG TAB PO PRN (13:32)
[2017-04-18 14:21] LABS: % IMMATURE GRANULYOCYTES 0.4 % (0.0-1.1); ABSOLUTE IMMATURE GRANULOCYTES 0.04 10^3/uL (0.00-0.10); ADD DIFF? NO; ADD MORPH? NO; ADD SCAN? NO; ATYPICAL LYMPHOCYTE FLAG 0 (0-99); FRAGMENT RBC FLAG 0 (0-99); HEMATOCRIT 38.4 % (40.0-51.0); HEMOGLOBIN 12.7 g/dL (13.7-17.5); LEFT SHIFT FLG 10 (0-99); LIPEMIA HEMOLYSIS FLAG 80 (0-99); MEAN CELL HEMOGLOBIN 29.6 pg (27.9-34.1); MEAN CELL HEMOGLOBIN CONCENTR. 33.1 g/dL (32.4-36.7); MEAN CELL VOLUME 89.5 fL (81.5-99.8); MEAN PLATELET VOLUME 8.3 fL (8.7-11.7); PLATELET CLUMPS FLAG 0 (0-99); PLATELET COUNT 364 10^3/uL (150-400); RED BLOOD CELL COUNT 4.29 10^6/uL (4.40-6.38); RED CELL DISTRIBUTION WIDTH 11.5 % (11.5-15.2)
[2017-04-18] MEDS: NS 1,000 ML IV SCH (14:21)
--- NOTE | 2017-04-18 14:42 | GCON ---
[f rep st] CONSULTATION REFERRING PHYSICIAN: Reji Lerner MD REASON FOR CONSULTATION: Patient known to Dr. Aguiar. 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 HISTORY OF PRESENT ILLNESS: The patient is a very unfortunate 26-year-old male of [place] descent, who presented to [facility] previously for persistent cough, ongoing for a pproximately 6 months. He had occasional hemoptysis. He developed left chest pain and back pain. An evaluation showed a mass in the left lower lobe with mediastinal lymphadenopathy and possible met astatic lesion in right 7th rib. Patient had bronchoscopy April 06, 2017, that showed a polypoid mass in the left main stem bronchus that was biopsied and showed to be consistent with squamous cell car cinoma. Patient does not have a significant smoking history. He smoked less than a pack of cigarettes for a month (for less than a year). 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 He has no known hazardous-ma terial exposure. He is adopted. His adoptive mother is with him today. His biological mother is [place]; she apparently had a history of breast cancer. No other details of biological family. Radha vera has had a previous admission for postobstructive pneumonia when he was on IV antibiotics; then rec ently as an outpatient, during workup, started to experience worsening cough and fever again. He wa s placed on Levaquin as an outpatient; had previously been on Augmentin. Chest x-ray done yesterday shows increased volume loss and consolidation of left lower lobe. Left hilar fullness, stable lyti c expansile right 7th rib lesion suspicious for metastasis, and probable trace right pleural effusio n. We were trying to manage as an outpatient, but patient continued to decline overnight with a sig nificant amount of pain, cough, and fever, and was admitted for further workup and evaluation. He has been on long-acting morphine 30 mg twice daily and had been taking Dilaudid for breakthrough pain; although, he had stopped Dilaudid because it was making him feel poorly he is using CBD patche s. Notably, CT angiogram last week showed no evidence of pulmonary embolism. He is due for staging studies including a PET scan, MRI of his spine, MRI brain; these are pending. His tumor has been s ent for biomarker analysis, including EGFR, CLAUDIA, ALK, PD-L1, also pending, and his pathology has bee n sent to [facility] and [facility]. His adoptive uncle is Dr. Faisal Carlton; he is the head of the pa thology department there, and would like to be a part of patient's medical decision-making. REVIEW OF SYSTEMS: Patient reports a cough with mucous production but denies hemoptysis. Shortness of breath is stable; he is not requiring oxygen. He reports fevers, shaking chills, and night swea ts. He denies any new neurologic symptoms. Occasionally has a headache but none today. Denies any abdominal pain, nausea, or vomiting. PAST MEDICAL HISTORY: Includes asthma; otherwise as per HPI. CURRENT MEDICATIONS: Include MS Contin, CBD oil, ondansetron, stool softener; most recently on Zofr an and was previously on Augmentin. ALLERGIES: To iodine contrast. PHYSICAL EXAMINATION: VITAL SIGNS: Blood pressure 94/52, pulse of 93, respiratory rate 12, satting 92% on room air. Temperature is 37.5. GENERAL: A young man, not in acute distress. Alert and or iented. Somewhat fatigued-appearing. HEENT: Anicteric. Oropharynx is clear. Extraocular muscles are equal and reactive to light and accommodation. Extraocular muscles are intact. HEART: Regula r rate and rhythm. LUNGS: He has decreased breath sounds in left lower lobe and consolidation fallon ges, dullness to percussion noted. ABDOMEN: Soft, nontender. Bowel sounds positive. EXTREMITIES: Lower extremities show no significant edema. SKIN: No rash. NEUROLOGIC: Nonfocal. We have no. LABS: None today, but his labs were reviewed from yesterday, essentially showing stable CBC. His p latelet count was about 490,000. His CMP was not reviewed. Imaging as per HPI. ASSESSMENT AND PLAN: A 26-year-old gentleman with the above-mentioned past medical history, now wit h a working diagnosis of what appears to be a stage IV squamous cell carcinoma originating in the le ft lower lobe. Based on CT imaging, he has mediastinum involvement as well as a right 7th rib. He has been pending PET-CT scan as well as MRI brain and spine as an outpatient. He presents today for fever and worsening cough, presumably again with post-obstructive pneumonia. 1. Post-obstructive pneumonia. Has failed outpatient oral antibiotics. Agree with admission for I V antibiotics and IV fluids. My concern is this will continue to be a problem until we have a treat ment plan. It looks as though patient has metastatic disease, which is known to Dr. Aguiar. His f inal pathology, including biomarkers and mutational analysis, are pending. I would favor some upfro nt palliative radiation to the obstructive mass to open up his airways, and then we can move forward with systemic therapy shortly after. At the same time, we could also radiate the right rib that is causing him pain. Will discuss with scheduling, to see if we can get his PET-CT done while he is a n inpatient. Will schedule MRI brain and spine here while he is admitted. Obtain a sputum culture if possible. 2. 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 This was identified as a polypoid mass in the left main stem bronchus. This is clearly causing problems with obstruction. Treatment options going forward include evaluating eligibility for clinical trials or standard of care treatment. He may be a candidate for immunotherapy based on PD-L1 expression or t argeted agents if tractor trailer driver mutations are discovered. Finally, could offer him conventional chemothera py with peoria/Alimta doublet or other. For now need to control post-obstructive pneumonia and co ntinue staging for treatment decisions; but I did consult Radiation Oncology to look at his CT scans from last week to consider palliative radiation to the mainstem bronchus. Dr. Michael has been cons ulted. He will look over scans and see if we need to update CT chest. We will continue to follow a long. Appreciate hospitalists' management with internal medicine issues. /[id number]/MODL
[2017-04-18 14:43] LABS: ANION GAP 8 mEq/L (8-16); CARBON DIOXIDE 25 mEq/l (22-31); CHLORIDE 101 mEq/L (97-110); CREATININE 1.1 mg/dL (0.7-1.3); GLOMERULAR FILTRATION RATE > 60; GLUCOSE 93 mg/dL (70-100); POTASSIUM 4.6 mEq/L (3.5-5.2); SODIUM 134 mEq/L (134-144)
[2017-04-18] MEDS ORDERED: PROCHLORPERAZINE MALEATE 10 MG TAB PO PRN (15:23)
--- NOTE | 2017-04-18 15:52 | GHP ---
[f rep st] HISTORY AND PHYSICAL DATE OF ADMISSION: 04/18/2017 CHIEF COMPLAINT: Fever. HISTORY OF PRESENT ILLNESS: This is a 26-year-old man, who was recently diagnosed with squamous clover l carcinoma, poorly differentiated, of the lung. This came about because he was having some shortne ss of breath, as well as left-sided chest pain. He was admitted here from April 08 to April 09, und erwent bronchoscopy with biopsy, treated for postobstructive pneumonia. He completed his course of antibiotics about 3 days ago, he never got to feeling back to himself, though he got worse after com pleting Augmentin. He [facility] He presented today to [facility] with fevers, was dire ct admitted from there. He has some sputum production. He is feeling much more fatigued than wisam l. He has some ongoing left-sided chest pain. PAST MEDICAL/SURGICAL HISTORY: 1. Asthma. 2. Squamous cell carcinoma, poorly differentiated as above. MEDICATIONS: Please see medication reconciliation. ALLERGIES: Iodine contrast. FAMILY HISTORY: He is adopted, his biological mother may have had breast cancer. SOCIAL HISTORY: He drinks a few alcoholic drinks a week. He smokes marijuana. REVIEW OF SYSTEMS: A 10-point review of systems is conducted and is negative except per HPI. PHYSICAL EXAM: VITAL SIGNS: Blood pressure 94/52, heart rate 93, respiration rate 12, saturating 9 0% on room air. Temperature is 37.5. GENERAL: The patient is a pleasant appearing man, who is lyi ng in bed, appears fatigued, but otherwise no acute distress. HEENT: Shows him to be normocephalic , atraumatic. CARDIOVASCULAR: Shows him to be regular. There is no murmurs, rubs, or gallops. PU LMONARY: Shows markedly diminished breath sounds in the left lung base, otherwise, clear to auscult ation bilaterally. ABDOMEN: Soft, nontender, nondistended. SKIN: Shows no rash. : No Santos. NEUROLOGIC: Shows him to be alert and oriented x3. He is moving all extremities. PSYCHIATRIC: S hows normal mood and affect. LABS: White count is 9.9, hemoglobin is 12. Basic metabolic panel is normal. DATA: I discussed this with Dr. Doty. We will attempt to get him palliative XRT. I personally viewed and interpreted his chest x-ray from earlier today. This shows persistent left lobe consolidation versus mass. IMPRESSION AND PLAN: A 26-year-old man with newly diagnosed squamous cell carcinoma, as well as pos tobstructive pneumonia. 1. Postobstructive pneumonia: We will treat with Invanz. We are attempting to set up palliative r adiation to alleviate the obstruction and facilitate clearance. We will hold his outpatient Levaqui n. He does not appear toxic. 2. Stage IV non-small cell lung cancer: Tumor markers in genetics have been sent, these are pendin g. Chemotherapy will depend on this per Oncology. He needs further imaging including MRI of his br ain, as well as his spine, I will order this. /[id number]/MODL
[2017-04-18] MEDS: ERTAPENEM 1 GM in NS 100 ML IV SCH (16:05)
[2017-04-18] MEDS: ACETAMINOPHEN 325 MG TAB PO PRN ×2 (18:00→23:04)
[2017-04-18] MEDS ORDERED: GADOBUTROL 10 ML VIAL IVP ONE (19:34)
[2017-04-18] MEDS ORDERED: MORPHINE 30 MG PO SCH (21:00)
[2017-04-18] MEDS: morphINE SR 30 MG TAB PO SCH (21:31)
[2017-04-18] MEDS: HYDROmorphONE/DILAUDID 2 MG TAB PO PRN ×2 (21:44→23:09)
[2017-04-18] MEDS: SENNOSIDES/DOCUSATE SODIUM TAB PO SCH (23:01)
[2017-04-19] MEDS: HYDROmorphONE/DILAUDID 2 MG TAB PO PRN ×6 (03:13→22:53)
[2017-04-19] MEDS: ACETAMINOPHEN 325 MG TAB PO PRN ×3 (03:13→20:06)
[2017-04-19 04:42] LABS: % IMMATURE GRANULYOCYTES 0.5 % (0.0-1.1); ABSOLUTE IMMATURE GRANULOCYTES 0.05 10^3/uL (0.00-0.10); ADD DIFF? NO; ADD MORPH? NO; ADD SCAN? NO; ATYPICAL LYMPHOCYTE FLAG 10 (0-99); FRAGMENT RBC FLAG 0 (0-99); HEMATOCRIT 37.9 % (40.0-51.0); HEMOGLOBIN 12.6 g/dL (13.7-17.5); LEFT SHIFT FLG 10 (0-99); LIPEMIA HEMOLYSIS FLAG 80 (0-99); MEAN CELL HEMOGLOBIN CONCENTR. 33.2 g/dL (32.4-36.7); MEAN CELL VOLUME 90.2 fL (81.5-99.8); MEAN PLATELET VOLUME 8.5 fL (8.7-11.7); PLATELET CLUMPS FLAG 30 (0-99); PLATELET COUNT 358 10^3/uL (150-400); RED CELL DISTRIBUTION WIDTH 11.5 % (11.5-15.2)
[2017-04-19 05:20] LABS: ANION GAP 8 mEq/L (8-16); CALCIUM 9.2 mg/dL (8.5-10.4); CARBON DIOXIDE 24 mEq/l (22-31); CHLORIDE 104 mEq/L (97-110); CREATININE 1.2 mg/dL (0.7-1.3); GLOMERULAR FILTRATION RATE > 60; GLUCOSE 111 mg/dL (70-100); POTASSIUM 5.2 mEq/L (3.5-5.2); SODIUM 136 mEq/L (134-144)
[2017-04-19] MEDS: SENNOSIDES/DOCUSATE SODIUM TAB PO SCH ×2 (08:11→21:50)
[2017-04-19] MEDS: ERTAPENEM 1 GM in NS 100 ML IV SCH (08:12)
[2017-04-19] MEDS: morphINE SR 30 MG TAB PO SCH ×2 (08:15→20:05)
[2017-04-19] MEDS: ONDANSETRON 4 MG/2 ML VIAL IVP PRN ×2 (11:30→14:50)
[2017-04-19] MEDS: ENOXAPARIN 40 MG/0.4 ML SYR SC SCH (12:43)
--- NOTE | 2017-04-19 12:55 | SOAPPROG ---
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 Post obx PNA - cont to have fevers on IV abx sputum Cx pending To start palliative XRT to bronchial lesion today - this should help clear infection; appreciate Dr Michael 2. Stage IV lung ca - mediastinal/hilar LAD as well as bone mets (R 7th rib, T9 , L1) No brain mets on MRI PET/CT pending Treating primary left lower lobe lesion w XRT to open obx; also plan to treat R 7th rib given pain molecular markers, PDL1, etc still pending to make final treatment decisions 3. Poor appetite - should improve as we treat PNA; monitor 4. Pain - cont oral narcotics ok w CBD patches but not sure allowed in hospital 5. PPX - lovenox 04/19/17 12:55 04/19/17 12:58 Subjective: feeling ok pending XRT today fever last night Objective: Vital Signs Temp Pulse Resp BP Pulse Ox 36.5 C 75 16 101/52 L 97 04/19/17 08:15 04/19/17 08:15 04/19/17 08:15 04/19/17 08:15 04/19/17 08:15 Microbiology 04/18/17 21:47 - Final Sputum, Expectorated Laboratory Results 04/19/17 04:28 04/19/17 04:28 04/18/17 04/19/17 04/20/17 05:59 05:59 05:59 Intake Total 1700 Output Total 400 Balance 1300 Gen - NAD HEENT - anicteric CV - RRR Chest - decrease BS at left lower lobe Abd - soft, NT, ND Ext - no edema Neuro - nonfocal ICD10 Worksheet Patient Problems: Problems Problem Status Onset Pneumonia Acute
--- NOTE | 2017-04-19 14:36 | SOAPPROG ---
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 Post obx PNA - cont to have fevers on IV abx sputum Cx pending To start palliative XRT to bronchial lesion today - this should help clear infection; appreciate Dr Michael 2. Stage IV lung ca - mediastinal/hilar LAD as well as bone mets (R 7th rib, T9 , L1) No brain mets on MRI PET/CT pending Treating primary left lower lobe lesion w XRT to open obx; also plan to treat R 7th rib given pain molecular markers, PDL1, etc still pending to make final treatment decisions 3. Poor appetite - should improve as we treat PNA; monitor 4. Pain - cont oral narcotics ok w CBD patches but not sure allowed in hospital 5. PPX - lovenox ADDENDUM: given pt's bone lesions, would eventually start him on IV bisphosphonate 04/19/17 14:36 Objective: Vital Signs Temp Pulse Resp BP Pulse Ox 36.5 C 75 16 101/52 L 97 04/19/17 08:15 04/19/17 08:15 04/19/17 08:15 04/19/17 08:15 04/19/17 08:15 Microbiology 04/18/17 21:47 - Final Sputum, Expectorated Laboratory Results 04/19/17 04:28 04/19/17 04:28 04/18/17 04/19/17 04/20/17 05:59 05:59 05:59 Intake Total 1700 Output Total 400 Balance 1300 ICD10 Worksheet Patient Problems: Problems Problem Status Onset Pneumonia Acute
[2017-04-19] MEDS ORDERED: HYDROmorphONE/DILAUDID 1 MG/ML SYR IVP PRN (15:23)
--- NOTE | 2017-04-19 15:27 | HOSPPROG ---
Hospitalist Progress Note Assessment/Plan: # post-obstructive pneumonia - invanz - XRT to tumor to hopefully relieve obstruction # non-small cell lung cancer, metastatic to bone - treamtne plans per onc, genetic studies pending # fever d/t pna # pain d/t cancer - - morphine SR, oxy IR, dilaudid IV and PO # lovenox for ppx Subjective: fever overnight; coughing Objective: Vital Signs Temp Pulse Resp BP Pulse Ox 39.1 C H 95 18 96/57 L 91 L 04/19/17 15:17 04/19/17 15:17 04/19/17 15:17 04/19/17 15:17 04/19/17 15:17 Microbiology 04/18/17 21:47 - Final Sputum, Expectorated Laboratory Results 04/19/17 04:28 04/19/17 04:28 04/18/17 04/19/17 04/20/17 05:59 05:59 05:59 Intake Total 1700 Output Total 400 Balance 1300 - Physical Exam Constitutional: uncomfortable Cardiovascular: regular rate and rhythym, no murmur, rub, or gallop Respiratory: no respiratory distress, other (L base diminished breath sounds and rales), No expiratory wheeze Gastrointestinal: normoactive bowel sounds, soft, non-tender abdomen, no palpable masses ICD10 Worksheet Patient Problems: Problems Problem Status Onset Pneumonia Acute
[2017-04-19] MEDS: NS 1,000 ML IV SCH (17:48)
[2017-04-19] MEDS ORDERED: HYDROmorphONE/DILAUDID 1 MG/ML SYR IVP ONE (20:26)
[2017-04-19] MEDS ORDERED: IOPAMIDOL (ISOVUE-300) 100 ML BTL ONE (20:50)
--- NOTE | 2017-04-19 21:31 | HOSPPROG ---
Hospitalist Progress Note Assessment/Plan: Called to bedside by RN for left jaw and neck pain that began after XRT. Pain is sharp and radiates to chest. PE: 38.6, HR 86, RR 14, 97% 2L Gen: ill-appearing HEENT: oropharynx clear without ulcers or erythema. Left mandibular swelling with TTP, no redness or warmth CV: RRR Lungs: decreased BS left base A&P 1. Acute left jaw pain -swelling/TTP on exam. Given persistent fevers will check facial CT to eval for abscess 2. Atypical CP: suspect due to cancer, PNA. Recent CTA 04/12 negative for PE. On Lovenox here. Trial Toradol. Primary team to consider steroids? Time spent on visit: 35 min spent bedside examining pt, reviewing prior labs and imaging, and ordering tests. Objective: Vital Signs Temp Pulse Resp BP Pulse Ox 38.6 C H 86 14 106/63 97 04/19/17 21:06 04/19/17 19:53 04/19/17 19:53 04/19/17 19:53 04/19/17 19:53 Microbiology 04/18/17 21:47 - Final Sputum, Expectorated Laboratory Results 04/19/17 04:28 04/19/17 04:28 04/18/17 04/19/17 04/20/17 05:59 05:59 05:59 Intake Total 1700 450 Output Total 400 Balance 1300 450 ICD10 Worksheet Patient Problems: Problems Problem Status Onset Pneumonia Acute
[2017-04-19] MEDS: KETOROLAC 15 MG/1 ML SDV IVP SCH (22:54)
[2017-04-19] MEDS: guaiFENesin 600 MG TAB.ER PO SCH (22:55)
[2017-04-20] MEDS ORDERED: MEPERIDINE 25 MG/ML SYR IVP ONE (05:54)
[2017-04-20] MEDS: KETOROLAC 15 MG/1 ML SDV IVP SCH ×3 (05:59→17:14)
[2017-04-20] MEDS: HYDROmorphONE/DILAUDID 2 MG TAB PO PRN ×2 (06:00→20:59)
[2017-04-20] MEDS: SENNOSIDES/DOCUSATE SODIUM TAB PO SCH ×3 (08:00→20:50)
[2017-04-20] MEDS: guaiFENesin 600 MG TAB.ER PO SCH ×2 (08:49→20:50)
[2017-04-20] MEDS: ERTAPENEM 1 GM in NS 100 ML IV SCH (08:49)
[2017-04-20] MEDS: morphINE SR 30 MG TAB PO SCH ×2 (08:49→20:50)
[2017-04-20] MEDS: ENOXAPARIN 40 MG/0.4 ML SYR SC SCH (08:50)
[2017-04-20] MEDS ORDERED: POLYETHYLENE GLYCOL 3350 17 GM PKT PO PRN (11:00)
--- NOTE | 2017-04-20 11:12 | HOSPPROG ---
Hospitalist Progress Note Assessment/Plan: # post-obstructive pneumonia - he is having ongoing fevers; would expect resolution of fevers in 1-2 days - invanz - XRT to tumor to hopefully relieve obstruction # face/neck pain - resolved; face CT negative # non-small cell lung cancer, metastatic to bone - treatment plans per onc, genetic studies pending # pain d/t cancer - morphine SR, oxy IR, dilaudid IV and PO # lovenox for ppx Subjective: episode of L face/neck/chest pain last night; still some tingling on L face/neck but much better Objective: Vital Signs Temp Pulse Resp BP Pulse Ox 36.8 C 83 16 95/56 L 96 04/20/17 08:35 04/20/17 08:35 04/20/17 08:35 04/20/17 08:35 04/20/17 08:35 Microbiology 04/18/17 21:47 - Final Sputum, Expectorated Laboratory Results 04/19/17 04:28 04/19/17 04:28 04/19/17 04/20/17 04/21/17 05:59 05:59 05:59 Intake Total 1700 1500 Output Total 400 500 Balance 1300 1000 high risk with ongoing fevers - Physical Exam Constitutional: no apparent distress, appears nourished Ears, Nose, Mouth, Throat: other (mild L submandibular and parotid gland enlargement) Cardiovascular: regular rate and rhythym, no murmur, rub, or gallop, systolic murmur Respiratory: no respiratory distress, no rales or rhonchi Gastrointestinal: normoactive bowel sounds, soft, non-tender abdomen, no palpable masses ICD10 Worksheet Patient Problems: Problems Problem Status Onset Pneumonia Acute
[2017-04-20] MEDS: ACETAMINOPHEN 325 MG TAB PO PRN ×2 (11:55→20:55)
[2017-04-20] MEDS: ONDANSETRON 4 MG/2 ML VIAL IVP PRN ×2 (12:42→17:24)
--- NOTE | 2017-04-20 13:08 | SOAPPROG ---
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 Post obx PNA - cont to have fevers on IV abx but will broaden coverage today sputum Cx w mixed oral saul Started palliative XRT to bronchial lesion yesterday - this should help clear infection; appreciate Dr Michael 2. 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 Poor appetite - should improve as we treat PNA; monitor 4. Pain - cont oral narcotics CBD patches at home 5. PPX - lovenox 04/19/17 14:36 04/20/17 13:04 04/20/17 13:20 Subjective: still feeling poorly fevers overnight Objective: Vital Signs Temp Pulse Resp BP Pulse Ox 37.0 C 83 16 97/52 L 97 04/20/17 12:48 04/20/17 11:48 04/20/17 11:48 04/20/17 11:48 04/20/17 11:48 Microbiology 04/18/17 21:47 - Final Sputum, Expectorated Laboratory Results 04/19/17 04:28 04/19/17 04:28 04/19/17 04/20/17 04/21/17 05:59 05:59 05:59 Intake Total 1700 1500 Output Total 400 500 Balance 1300 1000 Gen - slightly diaphoretic today, VS reviewed HEENT - anicteric CV - RRR Lungs - decreased BS in LLL Abd - soft, NT, BS+ Ext - no edema ICD10 Worksheet Patient Problems: Problems Problem Status Onset Pneumonia Acute
[2017-04-20] MEDS ORDERED: VANCOMYCIN 1.25 GM in D5W 250 ML IV SCH (14:00)
[2017-04-20] MEDS ORDERED: POLYETHYLENE GLYCOL 3350 17 GM PKT PO ONE (15:00)
[2017-04-20] MEDS: PIPERACILLIN/TAZO 4.5 GM/DEX 100 ML IV SCH ×2 (16:29→20:30)
[2017-04-20] MEDS: VANCOMYCIN 1.25 GM in D5W 250 ML IV SCH (17:14)
[2017-04-21] MEDS: PIPERACILLIN/TAZO 4.5 GM/DEX 100 ML IV SCH ×4 (00:44→21:26)
[2017-04-21] MEDS: KETOROLAC 15 MG/1 ML SDV IVP SCH ×2 (00:44→05:25)
[2017-04-21] MEDS: NS 1,000 ML IV SCH (00:44)
[2017-04-21] MEDS: ONDANSETRON DISINTEGRATING 4 MG TAB PO PRN (00:56)
[2017-04-21 04:55] LABS: % IMMATURE GRANULYOCYTES 0.6 % (0.0-1.1); ABSOLUTE IMMATURE GRANULOCYTES 0.05 10^3/uL (0.00-0.10); ADD DIFF? NO; ADD MORPH? NO; ADD SCAN? NO; ATYPICAL LYMPHOCYTE FLAG 0 (0-99); FRAGMENT RBC FLAG 0 (0-99); HEMATOCRIT 36.6 % (40.0-51.0); LEFT SHIFT FLG 10 (0-99); LIPEMIA HEMOLYSIS FLAG 80 (0-99); MEAN CELL HEMOGLOBIN 29.6 pg (27.9-34.1); MEAN CELL HEMOGLOBIN CONCENTR. 32.8 g/dL (32.4-36.7); MEAN CELL VOLUME 90.1 fL (81.5-99.8); MEAN PLATELET VOLUME 8.7 fL (8.7-11.7); PLATELET CLUMPS FLAG 10 (0-99); PLATELET COUNT 332 10^3/uL (150-400); RED BLOOD CELL COUNT 4.06 10^6/uL (4.40-6.38); RED CELL DISTRIBUTION WIDTH 11.5 % (11.5-15.2)
[2017-04-21 05:07] LABS: ANION GAP 8 mEq/L (8-16); CALCIUM 8.7 mg/dL (8.5-10.4); CARBON DIOXIDE 25 mEq/l (22-31); CHLORIDE 103 mEq/L (97-110); CREATININE 1.2 mg/dL (0.7-1.3); GLOMERULAR FILTRATION RATE > 60; GLUCOSE 94 mg/dL (70-100); POTASSIUM 4.7 mEq/L (3.5-5.2); SODIUM 136 mEq/L (134-144)
[2017-04-21] MEDS: VANCOMYCIN 1.25 GM in D5W 250 ML IV SCH ×2 (05:28→18:39)
[2017-04-21] MEDS: ONDANSETRON 4 MG/2 ML VIAL IVP PRN ×2 (10:10→15:11)
[2017-04-21] MEDS ORDERED: PROMETHAZINE HCL 25 MG/ML INJ IVP PRN (10:36)
[2017-04-21] MEDS ORDERED: BISACODYL 10 MG SUPP PR PRN (10:41)
[2017-04-21] MEDS ORDERED: SCOPOLAMINE HYDROBROMIDE 1.5 MG PATCH TD SCH (10:45)
[2017-04-21] MEDS: ENOXAPARIN 40 MG/0.4 ML SYR SC SCH (11:00)
[2017-04-21] MEDS: morphINE SR 30 MG TAB PO SCH ×2 (11:00→20:43)
[2017-04-21] MEDS: guaiFENesin 600 MG TAB.ER PO SCH ×2 (11:00→20:44)
[2017-04-21] MEDS: SENNOSIDES/DOCUSATE SODIUM TAB PO SCH ×2 (11:02→20:44)
--- NOTE | 2017-04-21 11:14 | HOSPPROG ---
Hospitalist Progress Note Assessment/Plan: DIAGNOSES: # post-obstructive pneumonia -changed to Piperacillin and vanco for broader coverage as he did not appear to respond to [place] -XRT to tumor to hopefully relieve obstruction #Severe intractable nausea and vomiting, unresponsive to Zofran -I suspect this is at least in part due to combination of radiation and Toradol which he has received twice daily for 4 days now -I have added Phenergan and scopolamine -I have discontinued Toradol and added Protonix -Dr. Doty is added some steoids as ell -I have also ordered a liver panel to be certain there is not evidence of a hepatobiliary cause # face/neck pain - resolved; face CT negative # non-small cell lung cancer, metastatic to bone - treatment plans per onc, genetic studies pending # pain d/t cancer - morphine S I have reviewed the patient's condition and care plan in detail with Dr Doty today SUBJECTIVE: He continues to have intractable nausea and vomiting today, unable to keep medicines or any food in Denies significant abdominal pain but is constipated. No vertigo, hearing loss, tinnitus No headache or other neurologic symptoms and nothing that sounds like cardiac discomfort OBJECTIVE Vitals reviewed: stable without fever Exam: alert oriented , looks fairly uncomfortable and tired skin warm dry color ok resps not labored lungs clear BSs heart regular abd soft nondistended nontender, bowel sounds present limbs warm, no edema iv site ok Cultures remain negative to date Laboratory data: Basic met panel and CBC are negative Objective: Vital Signs Temp Pulse Resp BP Pulse Ox 37.3 C 98 18 118/74 93 04/21/17 10:44 04/21/17 10:44 04/21/17 10:44 04/21/17 10:44 04/21/17 10:44 Microbiology 04/18/17 21:47 - Final Sputum, Expectorated Sputum Culture - Final Laboratory Results 04/21/17 04:33 04/21/17 04:33 04/20/17 04/21/17 04/22/17 06:59 06:59 06:59 Intake Total 1500 3710 Output Total 500 450 Balance 1000 3260 - Time Spent With Patient Time Spent with Patient: greater than 35 minutes Time Spent with Patient: Greater than 35 minutes spent on this patients care, greater than 50% of time spent counseling, educating, and coordinating care regarding the above mentioned plan. ICD10 Worksheet Patient Problems: Problems Problem Status Onset Pneumonia Acute
[2017-04-21] MEDS ORDERED: *PHM DO NOT USE-DEXAMETHASONE 0.2 MG/ML IV PED/NEWBORN SYR IV SCH (11:17)
--- NOTE | 2017-04-21 11:25 | SOAPPROG ---
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 Post obx PNA - fevers have defervesced on IV abx w zosyn/vanc sputum Cx w mixed oral saul Started palliative XRT to bronchial lesion 04/19 - this should help clear infection; appreciate Dr Michael have more nause today since XRT started 2. 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 Nausea - multifactorial plan suppository for constipation startscopolamine/ dex/ppi and d/c toradol cont IVF 4. Pain - cont oral narcotics CBD patches at home 5. PPX - lovenox 04/21/17 11:22 04/21/17 11:26 Subjective: IN moderate distress 2/2 nausea not taking in much po some abdominal pain he attributed to constipation increase cough w copious sputum production Objective: Vital Signs Temp Pulse Resp BP Pulse Ox 37.3 C 98 18 118/74 93 04/21/17 10:44 04/21/17 10:44 04/21/17 10:44 04/21/17 10:44 04/21/17 10:44 Microbiology 04/18/17 21:47 - Final Sputum, Expectorated Sputum Culture - Final Laboratory Results 04/21/17 04:33 04/21/17 04:33 04/20/17 04/21/17 04/22/17 05:59 05:59 05:59 Intake Total 1500 3710 Output Total 500 450 Balance 1000 3260 Gen - ill appearing HEENT - anicteric CV - tachy Resp - did not want to sit up for exam Abd - BS+, TTP throughout Ext - no edema Neuro - non focal ICD10 Worksheet Patient Problems: Problems Problem Status Onset Pneumonia Acute
[2017-04-21 11:52] LABS: ALBUMIN 2.5 g/dL (3.5-5.0); BILIRUBIN,TOTAL 0.9 mg/dL (0.1-1.4); BILIRUBIN-CONJUGATED 0.4 mg/dL (0.0-0.5); BILIRUBIN-UNCONJUGATED 0.5 mg/dL (0.0-1.1); TOTAL PROTEIN 5.5 g/dL (6.3-8.2)
[2017-04-21] MEDS: DEXAMETHASONE 4 MG/ML VIAL IVP SCH ×2 (12:16→20:44)
[2017-04-21] MEDS: PANTOPRAZOLE SODIUM 40 MG in NS 100 ML IV SCH ×2 (17:05→22:29)
[2017-04-21] MEDS: LORazepam 2 MG/ML INJ IVP PRN (21:26)
[2017-04-22] MEDS: PIPERACILLIN/TAZO 4.5 GM/DEX 100 ML IV SCH ×4 (02:13→20:44)
[2017-04-22] MEDS: VANCOMYCIN 1.25 GM in D5W 250 ML IV SCH (04:29)
--- NOTE | 2017-04-22 10:01 | HOSPPROG ---
Hospitalist Progress Note Assessment/Plan: DIAGNOSES: # Toxic Vanco trough level at 26 -BMP pending to assess renal fxn, this am's dose of vanco held -further plans once creat available # post-obstructive pneumonia -cultures negative; on Piperacillin and vanco for broader coverage as he did not appear to respond to invanz: will stop vanco at this time as cultures negative and trough too high -continue XRT to tumor to hopefully relieve obstruction - I have ordered repeat CXR today to check progress #Severe intractable nausea and vomiting, unresponsive to Zofran -better today so far; I suspect this is at least in part due to combination of radiation and Toradol which he had been receiving -continue Phenergan and scopolamine -discontinued Toradol and added Protonix - continue steroids for now -I have also ordered a liver panel to be certain there is not evidence of a hepatobiliary cause # face/neck pain - resolved; face CT negative # non-small cell lung cancer, metastatic to bone - treatment plans per onc, genetic studies pending # pain d/t cancer - morphine S I have reviewed the patient's condition and care plan in detail with Dr Mendez today SUBJECTIVE: his nausea is notably better today though he has not yet pain seems less and he is going notably longer between pain medicine Not short of breath no fever symptoms OBJECTIVE Vitals reviewed: stable without fever Exam: alert oriented , looks fairly uncomfortable and tired skin warm dry color ok resps not labored lungs clear BSs heart regular abd soft nondistended nontender, bowel sounds present limbs warm, no edema iv site ok Cultures remain negative to date Objective: Vital Signs Temp Pulse Resp BP Pulse Ox 36.5 C 64 16 93/55 L 98 04/22/17 04:00 04/22/17 04:00 04/22/17 04:00 04/22/17 04:00 04/22/17 04:00 Laboratory Results 04/21/17 04:33 04/21/17 04:33 04/21/17 04/22/17 04/23/17 06:59 06:59 06:59 Intake Total 3710 1100 Output Total 450 Balance 3260 1100 ICD10 Worksheet Patient Problems: Problems Problem Status Onset Pneumonia Acute
[2017-04-22] MEDS: PANTOPRAZOLE SODIUM 40 MG in NS 100 ML IV SCH ×2 (10:28→20:44)
[2017-04-22] MEDS: DEXAMETHASONE 4 MG/ML VIAL IVP SCH ×2 (10:28→21:11)
[2017-04-22] MEDS: morphINE SR 30 MG TAB PO SCH ×2 (10:28→20:45)
[2017-04-22] MEDS: SENNOSIDES/DOCUSATE SODIUM TAB PO SCH ×2 (10:29→20:44)
[2017-04-22] MEDS: NS 1,000 ML IV SCH (10:30)
[2017-04-22] MEDS: guaiFENesin 600 MG TAB.ER PO SCH ×2 (10:57→21:22)
[2017-04-22] MEDS: ENOXAPARIN 40 MG/0.4 ML SYR SC SCH (10:57)
[2017-04-22] MEDS: ONDANSETRON DISINTEGRATING 4 MG TAB PO PRN ×2 (11:04→18:58)
--- NOTE | 2017-04-22 11:39 | SOAPPROG ---
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 Has mediastinal/hilar LAD as well as bone mets (R 7th rib, T9, L1). No brain mets on MRI. Needs zometa outpatient for bone mets. Systemic therapy choices pending. Getting palliative XRT, which may be helping. * Post obstructive PNA - fevers have defervesced on IV abx; 3rd XRT yesterday. * Nausea - multifactorial; responding to medication and hoping to be ready to go home tomorrow. Subjective: Starting to feel better with less dyspnea and pain. Still with some nausea without vomiting. No problem with radiation. Objective: Vital Signs Temp Pulse Resp BP Pulse Ox 36.5 C 64 16 93/55 L 98 04/22/17 04:00 04/22/17 04:00 04/22/17 04:00 04/22/17 04:00 04/22/17 04:00 Laboratory Results 04/21/17 04:33 04/21/17 04:33 04/21/17 04/22/17 04/23/17 05:59 05:59 05:59 Intake Total 3710 1100 Output Total 450 Balance 3260 1100 Physical Exam - Physical Exam Respiratory: decreased breath sounds (left base) Cardiac/Chest: regular rate, rhythm Abdomen: normal bowel sounds, non-tender, soft ICD10 Worksheet Patient Problems: Problems Problem Status Onset Pneumonia Acute
[2017-04-22 12:27] LABS: ANION GAP 12 mEq/L (8-16); CALCIUM 8.3 mg/dL (8.5-10.4); CARBON DIOXIDE 22 mEq/l (22-31); CHLORIDE 102 mEq/L (97-110); GLUCOSE 100 mg/dL (70-100); POTASSIUM 4.7 mEq/L (3.5-5.2); SODIUM 136 mEq/L (134-144)
[2017-04-22 12:37] LABS: GLOMERULAR FILTRATION RATE 22
[2017-04-22 12:41] LABS: CREATININE 3.4 mg/dL (0.7-1.3)
[2017-04-22] MEDS: LORazepam 2 MG/ML INJ IVP PRN (21:11)
[2017-04-23] MEDS: PIPERACILLIN/TAZO 4.5 GM/DEX 100 ML IV SCH ×2 (01:33→06:24)
[2017-04-23 05:24] LABS: % IMMATURE GRANULYOCYTES 0.5 % (0.0-1.1); ABSOLUTE IMMATURE GRANULOCYTES 0.05 10^3/uL (0.00-0.10); ADD DIFF? NO; ADD MORPH? NO; ADD SCAN? NO; ATYPICAL LYMPHOCYTE FLAG 0 (0-99); FRAGMENT RBC FLAG 0 (0-99); HEMATOCRIT 36.2 % (40.0-51.0); HEMOGLOBIN 11.6 g/dL (13.7-17.5); LEFT SHIFT FLG 0 (0-99); LIPEMIA HEMOLYSIS FLAG 80 (0-99); MEAN CELL HEMOGLOBIN 29.1 pg (27.9-34.1); MEAN PLATELET VOLUME 8.6 fL (8.7-11.7); PLATELET CLUMPS FLAG 0 (0-99); PLATELET COUNT 408 10^3/uL (150-400); RED BLOOD CELL COUNT 3.98 10^6/uL (4.40-6.38); RED CELL DISTRIBUTION WIDTH 11.8 % (11.5-15.2)
[2017-04-23 05:38] LABS: ALBUMIN 2.4 g/dL (3.5-5.0); BILIRUBIN,TOTAL 0.8 mg/dL (0.1-1.4); BILIRUBIN-CONJUGATED 0.5 mg/dL (0.0-0.5); BILIRUBIN-UNCONJUGATED 0.3 mg/dL (0.0-1.1); TOTAL PROTEIN 5.3 g/dL (6.3-8.2)
[2017-04-23] MEDS: PANTOPRAZOLE SODIUM 40 MG in NS 100 ML IV SCH (09:40)
[2017-04-23] MEDS: morphINE SR 30 MG TAB PO SCH (09:40)
[2017-04-23] MEDS: DEXAMETHASONE 4 MG/ML VIAL IVP SCH ×2 (09:41→19:44)
[2017-04-23] MEDS: ENOXAPARIN 40 MG/0.4 ML SYR SC SCH (09:43)
[2017-04-23] MEDS: SENNOSIDES/DOCUSATE SODIUM TAB PO SCH ×2 (09:44→21:36)
[2017-04-23 10:20] VITALS: RESP 16
[2017-04-23 10:48] LABS: ANION GAP 11 mEq/L (8-16); CALCIUM 8.3 mg/dL (8.5-10.4); CARBON DIOXIDE 22 mEq/l (22-31); CHLORIDE 106 mEq/L (97-110); CREATININE 3.7 mg/dL (0.7-1.3); GLOMERULAR FILTRATION RATE 20; GLUCOSE 85 mg/dL (70-100); POTASSIUM 4.3 mEq/L (3.5-5.2); SODIUM 139 mEq/L (134-144)
[2017-04-23] MEDS: METOCLOPRAMIDE 10 MG TAB PO SCH ×3 (11:32→21:37)
--- NOTE | 2017-04-23 12:22 | SOAPPROG ---
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 Has mediastinal/hilar LAD as well as bone mets (R 7th rib, T9, L1). No brain mets on MRI. Needs zometa outpatient for bone mets. Systemic therapy choices pending. Getting palliative XRT, which may be helping. * Post obstructive PNA - fevers have defervesced on IV abx; 3rd XRT yesterday. * Nausea: will stop MS Contin and have him use just short acting meds. Will try reglan q6 hours * Pain Control: As above, will see if stopping MS Contin helps with nausea. Ok to continue short acting meds prn. * ARF: etiology unclear; will get ultrasound and hydrate. Subjective: Still having trouble with nausea and poor appetite. Has been a problem last several days. Only on ms contin for last 10 days. Previous pain is better and thinks he might be able to go without it. Objective: Vital Signs Temp Pulse Resp BP Pulse Ox 36.9 C 75 16 107/65 93 04/23/17 12:15 04/23/17 09:30 04/23/17 09:30 04/23/17 09:30 04/23/17 09:30 Laboratory Results 04/23/17 04:34 04/23/17 10:25 04/22/17 04/23/17 04/24/17 05:59 05:59 05:59 Intake Total 1100 3362 250 Balance 1100 3362 250 Physical Exam - Physical Exam General Appearance: no apparent distress Respiratory: decreased breath sounds (left) Cardiac/Chest: regular rate, rhythm Abdomen: non-tender, soft ICD10 Worksheet Patient Problems: Problems Problem Status Onset Pneumonia Acute
--- NOTE | 2017-04-23 12:31 | HOSPPROG ---
Hospitalist Progress Note Assessment/Plan: DIAGNOSES: # Vancomycin induced Acute Renal Failure (new problem) -mechanism of this injury is uncertain but literature suggests interstitial cystitis -Vanco was stopped 04/22; will need to keep well hydrated with IV fluids, solange as he has ongoing nausea -follow renal fxn closely, avoid nephrotoxins # post-obstructive pneumonia -notably improved -cultures negative; on Piperacillin as he did not appear to respond to invanz : vanco stopped due to neprhotoxic result -continue XRT to tumor to hopefully relieve obstruction #Severe intractable nausea and vomiting, unresponsive to Zofran -not doing as well today with this, ? role of narcotic and constipation -continue Phenergan and scopolamine -discontinued Toradol and added Protonix -continue steroids for now -narcotic decreased by Dr Mendez -will increase laxative regimen # face/neck pain - resolved; face CT negative # non-small cell lung cancer, metastatic to bone - treatment plans per onc, genetic studies pending -receiving palliative RT # pain d/t cancer - morphine S I have reviewed the patient's condition and care plan in detail with Dr Mendez today SUBJECTIVE: nasuea is worse today and not getting any food in, vomited once this am so far Not short of breath, no fever symptoms Pain overall better overall better energy OBJECTIVE Vitals reviewed: stable without fever Exam: alert oriented , looks fairly uncomfortable and tired skin warm dry color ok resps not labored lungs clear BSs heart regular abd soft nondistended nontender, bowel sounds present limbs warm, no edema iv site ok Cultures remain negative to date Lab data: -creat up to 3.7 today Objective: Vital Signs Temp Pulse Resp BP Pulse Ox 36.9 C 75 16 107/65 93 04/23/17 12:15 04/23/17 09:30 04/23/17 09:30 04/23/17 09:30 04/23/17 09:30 Laboratory Results 04/23/17 04:34 04/23/17 10:25 04/22/17 04/23/17 04/24/17 06:59 06:59 06:59 Intake Total 1100 3612 Balance 1100 3612 ICD10 Worksheet Patient Problems: Problems Problem Status Onset Pneumonia Acute
[2017-04-23] MEDS: NS 1,000 ML IV SCH (12:58)
[2017-04-23] MEDS: PIPERACILLIN/TAZO 3.375 GM/DEX 50 ML IV SCH ×2 (13:54→19:44)
[2017-04-23] MEDS: guaiFENesin 600 MG TAB.ER PO SCH ×2 (13:55→21:24)
[2017-04-23] MEDS: LORazepam 2 MG/ML INJ IVP PRN (21:37)
[2017-04-24] MEDS: PIPERACILLIN/TAZO 3.375 GM/DEX 50 ML IV SCH ×4 (01:37→20:24)
[2017-04-24] MEDS: NS 1,000 ML IV SCH ×2 (04:18→20:24)
[2017-04-24] MEDS: METOCLOPRAMIDE 10 MG TAB PO SCH ×4 (05:31→20:23)
[2017-04-24 05:41] LABS: ANION GAP 8 mEq/L (8-16); CALCIUM 8.4 mg/dL (8.5-10.4); CARBON DIOXIDE 23 mEq/l (22-31); CHLORIDE 108 mEq/L (97-110); CREATININE 3.5 mg/dL (0.7-1.3); GLOMERULAR FILTRATION RATE 21; GLUCOSE 95 mg/dL (70-100); POTASSIUM 4.6 mEq/L (3.5-5.2); SODIUM 139 mEq/L (134-144)
[2017-04-24] MEDS ORDERED: RANITIDINE HCL 150 MG/10 ML UDCUP PO SCH (09:00)
--- NOTE | 2017-04-24 09:28 | HOSPPROG ---
Hospitalist Progress Note Assessment/Plan: DIAGNOSES: # Vancomycin induced Acute Renal Failure (new problem) -some improvement today, which should continue as long as we keep him hydrated -mechanism of this injury is uncertain but literature suggests interstitial cystitis -Vanco was stopped 04/22; will need to keep well hydrated with IV fluids, solaneg as he has ongoing nausea -follow renal fxn closely, avoid nephrotoxins # post-obstructive pneumonia -notably improved -cultures negative; on Piperacillin as he did not appear to respond to invanz : vanco stopped due to neprhotoxic side effect -continue XRT to tumor to hopefully relieve obstruction #Severe intractable nausea and vomiting, unresponsive to Zofran -seems better so far today but has not tried to eat yet (did eat dinner last night), ? role of narcotic and constipation -continue Phenergan and scopolamine -on Protonix; discontinued Toradol -continue steroids for now -narcotic decreased by Dr Mendez 04/23 -continue laxative regimen # face/neck pain - resolved; face CT negative # non-small cell lung cancer, metastatic to bone - treatment plans per onc, genetic studies pending -receiving palliative RT # pain d/t cancer -narcotic decreased 04/23, follow progress, he seems ok c current med this am I have reviewed the patient's condition and care plan in detail with Dr Varma today SUBJECTIVE: states nausea better overall today, at dinner last night, has not tried to eat yet this am pain is stable after decreasing narcotic yesterday OBJECTIVE Vitals reviewed: stable without fever Exam: alert oriented , looks fairly uncomfortable and tired skin warm dry color ok resps not labored lungs clear BSs heart regular abd soft nondistended nontender, bowel sounds present limbs warm, no edema iv site ok Cultures remain negative to date Lab data: -creat down to 3.5 today Objective: Vital Signs Temp Pulse Resp BP Pulse Ox 37.1 C 70 16 115/80 92 04/24/17 08:07 04/24/17 08:07 04/24/17 08:07 04/24/17 08:07 04/24/17 08:07 Laboratory Results 04/23/17 04:34 04/24/17 05:14 04/23/17 04/24/17 04/25/17 06:59 06:59 06:59 Intake Total 3612 2262 Output Total 1622 Balance 3612 -63 ICD10 Worksheet Patient Problems: Problems Problem Status Onset Pneumonia Acute
[2017-04-24] MEDS: FAMOTIDINE 20 MG TAB PO SCH (09:38)
[2017-04-24] MEDS: SENNOSIDES/DOCUSATE SODIUM TAB PO SCH ×2 (09:38→20:33)
[2017-04-24] MEDS: DEXAMETHASONE 4 MG/ML VIAL IVP SCH ×2 (09:41→20:23)
[2017-04-24] MEDS: guaiFENesin 600 MG TAB.ER PO SCH ×2 (09:41→20:23)
--- NOTE | 2017-04-24 09:54 | SOAPPROG ---
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 Has mediastinal/hilar LAD as well as bone mets (R 7th rib, T9, L1). No brain mets on MRI. Needs zometa outpatient for bone mets, but not now with elevated creatinine. Systemic therapy choices pending. Getting palliative XRT, which may be helping. * Post obstructive PNA - fevers have defervesced on IV abx; Continue daily XRT. * Nausea: Likely multifactorial (?narcotics, uremia, antibiotics). Improved, but still present. On q^ hour reglan. * Pain Control: Not a significant issue today. Off ms contin, on short acting meds prn. * ARF: likely secondary to vancomycin. Anticipate full recovery. Ultrasound negative for obstruction. Creat down a bit. Plan: 04/24/17 09:51 Subjective: less nauseate, no significant pain. Feels weak. Objective: Vital Signs Temp Pulse Resp BP Pulse Ox 37.1 C 70 16 115/80 92 04/24/17 08:07 04/24/17 08:07 04/24/17 08:07 04/24/17 08:07 04/24/17 08:07 Laboratory Results 04/23/17 04:34 04/24/17 05:14 04/23/17 04/24/17 04/25/17 05:59 05:59 05:59 Intake Total 3362 2512 Output Total 2325 Balance 3362 187 Physical Exam - Physical Exam General Appearance: alert, no apparent distress Neck: supple Respiratory: other (absent breath sounds about one half of the way up on the left, otherwise clear.) Abdomen: non-tender, soft Extremities: No pedal edema ICD10 Worksheet Patient Problems: Problems Problem Status Onset Pneumonia Acute
[2017-04-24] MEDS ORDERED: PATCH REMOVAL 1 EA PATCH TD SCH (10:40)
[2017-04-24] MEDS ORDERED: POLYETHYLENE GLYCOL 3350 17 GM PKT PO SCH (12:35)
[2017-04-25] MEDS: PIPERACILLIN/TAZO 3.375 GM/DEX 50 ML IV SCH ×2 (02:00→07:22)
[2017-04-25] MEDS: METOCLOPRAMIDE 10 MG TAB PO SCH ×2 (05:15→16:05)
[2017-04-25 05:53] LABS: ANION GAP 9 mEq/L (8-16); CARBON DIOXIDE 22 mEq/l (22-31); CHLORIDE 109 mEq/L (97-110); CREATININE 2.8 mg/dL (0.7-1.3); GLOMERULAR FILTRATION RATE 27; GLUCOSE 92 mg/dL (70-100); POTASSIUM 4.5 mEq/L (3.5-5.2); SODIUM 140 mEq/L (134-144)
[2017-04-25 07:44] VITALS: TEMP 98.2
[2017-04-25] MEDS: DEXAMETHASONE 4 MG/ML VIAL IVP SCH (09:10)
[2017-04-25] MEDS: FAMOTIDINE 20 MG TAB PO SCH (09:11)
[2017-04-25] MEDS: ONDANSETRON 4 MG/2 ML VIAL IVP PRN (09:15)
[2017-04-25] MEDS: LIDOCAINE 5% 1 EA PATCH TD SCH ×3 (09:22→11:55)
[2017-04-25 11:49] VITALS: BP 102/52; PULSE 81; O2SAT 94
--- NOTE | 2017-04-25 13:29 | PDDCSUM ---
Discharge Summary Discharge Summary: DISCHARGE DIAGNOSES: CONSULTANTS: PROCEDURES: HOSPITAL COURSE SUMMARY: PENDING TEST RESULTS: MEDICATION CHANGES: FOLLOW-UP PLAN: Greater than 35 minutes bedside and care coordination time today
--- NOTE | 2017-04-25 17:03 | PDDCSUM ---
Discharge Summary Discharge Summary: DISCHARGE DIAGNOSES: # Acute post-obstructive pneumonia, comm aquired # Vancomycin induced Acute Renal Failure (new problem) # Severe intractable nausea and vomiting, unresponsive to Zofran # Acute diarrheal illness with Enteroaggregative E coli # face/neck pain - resolved; face CT negative # non-small cell lung cancer, metastatic to bone # pain d/t cancer CONSULTANTS: Dr. Enriqueta Doty of Oncology HOSPITAL COURSE SUMMARY: This patient with known metastatic lung cancer, uncertain genetic characteristics, was recently diagnosed and started on treatment. He came into the hospital at this time with the acute postobstructive pneumonia in the left lung. He was hypoxemic. He was started on antibiotics and started on palliative radiation treatment to the lung to try and relieve obstruction. Between these measures he did have good resolution of his pneumonia here in the hospital. There was some pain with this and he had good improvement in pain though he still has some bone pain. At this point is no longer febrile, no longer short of breath, no longer hypoxemic. He is eating and drinking well and up walking. He did develop a diarrheal illness here in the hospital. C diff testing was negative but he did have her and enteroaggregative E coli. this is generally a self-limiting illness so was treated conservatively with fluids and he is tolerating this well. He did have some issues with pain and nausea here in the hospital which responded well to standard treatments in the cancer setting. At this point he is off of all narcotics. His pain is reasonably controlled with over-the- counter medication. He is still on some treatments for nausea and will continue these at home. PENDING TEST RESULTS: None MEDICATION CHANGES: Addition of dexamethasone which was tapered off over the next 6 days Addition of Zofran and Phenergan FOLLOW-UP PLAN: At [facility] in 3 days Greater than 35 minutes bedside and care coordination time today
[2017-04-25] MEDS ORDERED: PATCH REMOVAL 1 EA PATCH TD SCH (21:00)
== END 2017-04-25 16:58 | disposition home or self-care (01) | DRG 194 ==
LOC: F1N 12:04
PROVIDERS: ADMIT Student in an Organized Health Care Education/Training Program; ATTEND Student in an Organized Health Care Education/Training Program
DX: J18.9 Pneumonia, unspecified organism (principal); C34.02 Malignant neoplasm of left main bronchus; C79.51 Secondary malignant neoplasm of bone; C77.9 Secondary and unspecified malignant neoplasm of lymph node, unspecified; N17.9 Acute kidney failure, unspecified; R11.2 Nausea with vomiting, unspecified; G89.3 Neoplasm related pain (acute) (chronic); R19.7 Diarrhea, unspecified; B96.20 Unspecified Escherichia coli [E. coli] as the cause of diseases classified elsewhere
CPT/HCPCS: A9585; J1100; J1170; J1200; J1335; J1650; J1885; J2060; J2405; J2543; J2550; J3370; Q9967

== ENCOUNTER → 2017-06-23 | Day surgery (SDC) | payer OTHER | END | disposition home or self-care (01) | LOC: FIMAGING 15:30 | PROVIDERS: ATTEND Internal Medicine Hematology & Oncology | PROC: 02HV33Z Insertion of Infusion Device into Superior Vena Cava, Percutaneous Approach (ICD-10-PCS; principal; 2017-06-23) | DX: C34.02 Malignant neoplasm of left main bronchus (principal) | CPT/HCPCS: C1751 ==